=== PATIENT | female | born 1980 | race Caucasian/White ===

== ENCOUNTER 2023-07-31 07:45 | Outpatient (CLI) | payer OTHER, SELFPAY ==
--- NOTE | ~2023-07-31 | MM_ITS ---
EXAMINATION: MM screening jorge BI w carmen HISTORY: Baseline screening mammogram TECHNIQUE: Craniocaudal and mediolateral oblique 3-D tomosynthesis images were obtained and synthetic 2-D images were generated. CAD analysis was submitted and interpreted. COMPARISON: None, baseline BREAST PARENCHYMAL COMPOSITION: There are scattered areas of fibroglandular density. FINDINGS: RIGHT BREAST: An asymmetry is present in the anterior third of the slightly inner breast 4 cm from th e nipple on the craniocaudal view. LEFT BREAST: An asymmetry is present in the posterior third of the outer breast 10 cm from the nipple on the craniocaudal view. IMPRESSION: 1. Bilateral breast asymmetries 2. Additional mammographic views and possible breast ultrasound are recommended to evaluate the bilat eral asymmetries and establish a baseline given that this is the first mammographic examination. BI-RADS Category 0: Incomplete: Needs additional imaging evaluation. Reviewed, dictated and finalized at location A. WEB DEVELOPER IMPRESSION: 1. Bilateral breast asymmetries 2. Additional mammographic views and possible breast ultrasound are recommended to evaluate the bilateral asymmetries and establish a baseline given that this is the first mammographic examination. BI-RADS Category 0: Incomplete: Needs additional imaging evaluation.
== END 2023-07-31 07:46 | disposition home or self-care (01) ==
LOC: ANHIMG 07:48
PROVIDERS: PCP Physician Assistant Medical; Visit Provider Physician Assistant Medical
DX: Z12.31 Encounter for screening mammogram for malignant neoplasm of breast (principal); R92.8 Other abnormal and inconclusive findings on diagnostic imaging of breast
CPT/HCPCS: 77063; 77067

== ENCOUNTER 2023-08-26 12:03 | Outpatient (CLI) | payer OTHER, SELFPAY ==
--- NOTE | ~2023-08-26 | MMUS_ITS ---
EXAMINATION: MM diagnostic jorge BI w carmen, US breast BI limited HISTORY: Follow-up bilateral breast asymmetries TECHNIQUE: Additional 3-D tomosynthesis images of the breasts were performed and synthetic 2-D images were generated. CAD analysis was submitted and interpreted. High resolution limited bilateral breast ultrasound was performed. COMPARISON: 07/31/2023 BREAST PARENCHYMAL COMPOSITION: Not dense: There are scattered areas of fibroglandular density. FINDINGS: MAMMOGRAPHIC FINDINGS: There are no suspicious masses, calcifications or architectural distortion in either breast to sugges t malignancy. ULTRASOUND: Limited bilateral breast ultrasound: Normal heterogeneous echotexture without focal solid or cystic m ass in either breast. IMPRESSION: 1. No evidence for malignancy in either breast. 2. Routine yearly screening mammogram and regular clinical breast examination are recommended. BI-RADS Category 1: Negative Reviewed, dictated and finalized at location A. L JUDGE IMPRESSION: 1. No evidence for malignancy in either breast. 2. Routine yearly screening mammogram and regular clinical breast examination a re recommended. BI-RADS Category 1: Negative
== END 2023-08-26 12:04 | disposition home or self-care (01) ==
LOC: ANHIMG 12:07
PROVIDERS: PCP Physician Assistant Medical; Visit Provider Physician Assistant Medical
DX: R92.8 Other abnormal and inconclusive findings on diagnostic imaging of breast (principal)
CPT/HCPCS: 76642; 77062; 77066; G0279

== ENCOUNTER 2024-01-27 10:33 | Outpatient (CLI) | payer OTHER, SELFPAY ==
--- NOTE | ~2024-01-27 | MR_ITS ---
EXAMINATION: MR brain/brain stem wo/w con DATE: 01/27/2024 11:16 INDICATION: Dizziness and giddiness. TECHNIQUE: Magnetic resonance imaging (MRI) of the brain and brainstem was performed without and with 20 mL MultiHance intravenous contrast. COMPARISON: None. FINDINGS: There are a few foci of nonspecific increased T2-weighted signal intensity in the cerebral white matter, which is within normal limits for the patient's age. There is no intracranial hemorrhag e, acute infarction, or abnormal intracranial mass lesion. The ventricles are normal in size. There i s mild mucosal thickening in the paranasal sinuses. The orbits are normal. The mastoid air cells are normal. IMPRESSION: 1. Normal aging brain. Reviewed, dictated and finalized at location A. IMPRESSION: 1. Normal aging brain.
== END 2024-01-27 10:34 ==
LOC: MICIMG 10:33
PROVIDERS: PCP Physician Assistant Medical; Visit Provider Physician Assistant Medical
DX: R42 Dizziness and giddiness (principal)
CPT/HCPCS: 70553; A9577

== ENCOUNTER 2025-01-25 11:18 | Outpatient (CLI) | payer OTHER, SELFPAY ==
--- OUTSIDE RECORDS SUMMARY | 2025-01-25 11:26 | XMS_ITS | Data Portability ---
Author Organization [facility] Address [address] [place] [address] Care Team Providers Care Paint Specialist Name Role Phone RYDER SAURAV Primary Care Provider Assessment Encounter Date Assessment Date Assessment LastModified by Organization Details LastModified Time 11/17/2024 11/17/2024 The patient and I discussed the various causes of abnormal uterine bleeding, including polyps, fibroids, hyperplasia, atypia, anovulation, etc. We reviewed the typical evaluation with labs, pelvic US and possible endometrial biopsy. Briefly discussed the options available for treatment (depending on the results of evaluation) such as hormonal treatment (OCPs, progestins), Mirena, endometrial ablation, and surgery. We spent more than 30 minutes face to face. Not available 11/17/2024 10:48:44 12/07/2024 12/07/2024 Annual gynecological exam performed. Patient will come back in a year unless there are new symptoms. Not available 12/07/2024 09:40:30 Plan of Treatment Reminders Order Date Submit Date Provider Last Modified By Organization Details Last Modified Time Details Appointments Robotic TLH 2024 07:30A Jovita ALTMAN MD Not available Not available Not available SURG POST OP 2024 09:45A Jovita ALTMAN MD Not available Not available Not available Lab pap, IG + HR HPV - HPV regardles s but if HPV is positive need subtyping 16,18/45 12/07/ 025 [facility] (Lab), [address], [place], [address], 12/12/2024 13:00:42 dhea-sulf ate, serum 2024 025 [facility] (Lab), [address], [place], [address], 11/21/2024 19:04:30 hormone panel, serum or plasma 2024 025 [facility] (Lab), [address], [place], [address], 11/21/2024 19:04:30 progester one, serum 2024 025 [facility] (Lab), [address], [place], [address], 11/21/2024 19:04:29 prolactin , serum 2024 025 [facility] (Lab), [address], [place], [address], 11/21/2024 19:04:29 shbg (sex hormone-b inding globulin) , serum 2024 025 [facility] (Lab), [address], [place], [address], 11/21/2024 19:04:31 TSH, serum or plasma 2024 025 [facility] (Lab), [address] [place], [address], 11/21/2024 19:04:31 testoster one free/test osterone total, ratio, serum 2024 025 [facility] (Lab), [address] [place], [address], 11/21/2024 19:04:32 CBC w/ auto diff 2024 025 [facility], [address] [place], [address], 11/21/2024 19:04:28 Referral None recorded. Procedures None recorded. Surgeries robotic assisted hysterect josiah w/bilater al salpingo- oophorect josiah (SURG) 2024 025 [email or web address], [address], [place], [address], 01/16/2025 12:37:54 Imaging MAMMO, screening , digital, bilateral 2024 025 [email or web address] [facility], [address], [place], [address], 01/09/2025 11:50:42 US, pelvis 2024 025 [email or web address] [facility], [place], [address], 11/23/2024 15:13:10 US, transvagi nal 2024 025 [email or web address] [facility], [address], [place], [address], 11/23/2024 15:13:10 US, pelvis, complete 2024 025 [email or web address] [address], [place], [address], 11/28/2024 10:38:14 Medication Orders None recorded. Patient TargetsNo targets recorded. Patient InstructionsNo instructions recorded. Reason for Referral None Reported. Results Created Date Observation Date Name Description Value Unit Range Abnormal Flag Note LastModifiedBy Organization Detail LastModifiedTime 11/18/1911/17/2024 CBC W/DIF F WBC 4.7 10'3/ uL 3.5-10 .5 Not Available [facility] (Lab) [address], [place], [address], 11/21/2024 19:04:28 11/18/19 25 11/17/2024 CBC W/DIF F RBC 4.57 10'6/ uL (based on docume nted legal sex) 3.80-5 .20 Not Available [facility] (Lab) [address], [place], [address], 11/21/2024 19:04:28 11/18/19 25 11/17/2024 CBC W/DIF F HGB 12.5 g/dL (based on docume nted legal sex) 11.6-1 5.4 Not Available [facility] (Lab) [address], [place], [address], 11/21/2024 19:04:28 11/18/1911/17/2024 CBC W/DIF F HCT 41.0 % (based on docume nted legal sex) 34.0-4 5.0 Not Available [facility] (Lab) [address], [place], [address], 11/21/2024 19:04:28 11/18/19 25 11/17/2024 CBC W/DIF F MCV 89.7 fL 80.0-9 9.0 Not Available [facility] (Lab) [address], [place], [address], 11/21/2024 19:04:28 11/18/19 25 11/17/2024 CBC W/DIF F MCH 27.4 pg 27.0-3 4.0 Not Available [facility] (Lab) [address] [place], [address], 11/21/2024 19:04:28 11/18/1911/17/2024 CBC W/DIF F MCHC 30.5 g/dL 32.0-3 5.5 low Not Available [facility] (Lab) [address] [place], [address], 11/21/2024 19:04:28 11/18/19 25 11/17/2024 CBC W/DIF F RDW 18.5 % 11.0-1 5.0 high Not Available [facility] (Lab) [address], [place], [address], 11/21/2024 19:04:28 11/18/19 25 11/17/2024 CBC W/DIF F plt 195 10'3/ uL 150-40 0 Not Available [facility] (Lab) [address], [place], [address], 11/21/2024 19:04:28 11/18/19 25 11/17/2024 CBC W/DIF F MPV 13.6 fL 8.8-12 .1 high Not Available [facility] (Lab) [address], [place], [address], 11/21/2024 19:04:28 11/18/19 25 11/17/2024 CBC W/DIF F neutrophils 68.7 % 34.0-7 3.0 Not Available [facility] (Lab) [address], [place], [address], 11/21/2024 19:04:28 11/18/19 25 11/17/2024 CBC W/DIF F lymphocytes 23.1 % 15.0-5 0.0 Not Available [facility] (Lab) [address], [place], [address], 11/21/2024 19:04:28 11/18/19 25 11/17/2024 CBC W/DIF F monocytes 6.2 % 1.0-15 .0 Not Available [facility] (Lab) [address], [place], [address], 11/21/2024 19:04:28 11/18/19 25 11/17/2024 CBC W/DIF F eosinophils 0.9 % 0.0-8. 0 Not Available [facility] (Lab) [address] [place], [address], 11/21/2024 19:04:28 11/18/19 25 11/17/2024 CBC W/DIF F basophils 0.9 % 0.0-2. 0 Not Available [facility] (Lab) [address], [place], [address], 11/21/2024 19:04:28 11/18/1911/17/2024 CBC W/DIF F immature granulocytes 0.2 % no define d refere nce range Immat ure Granu locyt es (IG) repre sents autom ated enume ratio n of Metam yeloc ytes, Myelo cytes and Promy elocy keshawn when IG is < 5%. Blast s are not inclu ded in IG and repor kyle separ ately if prese nt. Not Available [facility] (Lab) [address], [place], [address], 11/21/2024 19:04:28 11/18/1911/17/2024 CBC W/DIF F absolute neutrophils 3.2 10'3/ uL 1.5-8. 0 Not Available [facility] (Lab) [address], [place], [address], 11/21/2024 19:04:28 11/18/19 25 11/17/2024 CBC W/DIF F absolute lymphocytes 1.1 10'3/ uL 1.0-4. 0 Not Available [facility] (Lab) [address], [place], [address], 11/21/2024 19:04:28 11/18/19 25 11/17/2024 CBC W/DIF F absolute monocytes 0.3 10'3/ uL 0.2-1. 0 Not Available [facility] (Lab) [address], [place], [address], 11/21/2024 19:04:28 11/18/19 25 11/17/2024 CBC W/DIF F absolute eosinophils 0.0 10'3/ uL 0.0-0. 6 Not Available [facility] (Lab) [address], [place], [address], 11/21/2024 19:04:28 11/18/19 25 11/17/2024 CBC W/DIF F absolute basophils 0.0 10'3/ uL 0.0-0. 3 Not Available [facility] (Lab) [address], [place], [address], 11/21/2024 19:04:28 11/18/19 25 11/17/2024 CBC W/DIF F absolute immature granulocytes 0.0 10'3/ uL 0.00-0 .10 Refer ence range s for nonbi nary/ inter sex or unspe cifie d gende r patie nts have not been estab lishe d. Pleas e refer to the follo wing table for range s estab lishe d for cisge nder patie nts and evalu ate in the clini je jeremías xt of the indiv idual patie nt: https ://sole blaire book. nm.or g/gen derx Not Available [facility] (Lab) [address], [place], [address], 11/21/2024 19:04:28 11/18/19 25 11/17/2024 PROGE STERO NE progesterone 1.15 NG/mL This assay was perfo rmed using [employer] ratio n reage nts and test kits. Value s obtai joan with other assay metho ds or kits canno t be used inter [facility] e[facility] . Femal e Proge stero ne Range s: Folli cular phase 0.06- 0.89 ng/mL Ovula tion phase 0.12- 12.00 ng/mL Lutea l phase 1.83- 23.90 ng/mL Postm enopa usal <0.05 -0.13 ng/mL Healt hy Pregn ant Women 1st Trime ster 11.0- 44.30 2nd Trime ster 25.40 -83.3 0 3rd Trime ster 58.70 -214. 00 Not Available [facility] (Lab) [address], [place], [address], 11/21/2024 19:04:29 11/18/19 25 11/17/2024 PROLA CTIN prolactin, total 14.40 NG/mL 4.79-2 3.30 This assay was perfo rmed using [employer] ratio n reage nts and test kits. Value s obtai joan with other assay metho ds or kits canno t be used inter [facility] . Not Available [facility] (Lab) [address] [place], [address], 11/21/2024 19:04:29 11/18/19 25 11/17/2024 DHEA SULFA TE DHEA-sulfate 164 ug/dL Femal e Range s Age(y ) Range (ug/d L) 10-15 34-28 0 15-20 65-36 8 20-25 148-4 07 25-35 99-34 0 35-45 61-33 7 45-55 35-25 6 55-65 19-20 5 65-75 9-246 > 75 12-15 4 Not Available [facility] (Lab) [address] [place], [address], 11/21/2024 19:04:30 11/18/19 25 11/17/2024 FSH, LH, ESTRA DIOL estradiol 295.0 pg/mL This assay was perfo rmed using [employer] ratio n reage nts and test kits. Value s obtai joan with other assay metho ds or kits canno t be used inter [facility] . Femal e Estra diol Range s: Folli cular phase 12.4- 233 pg/mL Ovula tion phase 41.0- 398 pg/mL Lutea l phase 22.3- 341 pg/mL Postm enopa usal <5-13 8 pg/mL Healt hy Pregn ant Women 1st Trime ster 154-3 243 pg/mL 2nd Trime ster 1561- 39281 pg/mL 3rd Trime ster 8525- >3000 0 pg/mL Not Available [facility] (Lab) [address] [place], [address], 11/21/2024 19:04:30 11/18/19 25 11/17/2024 FSH, LH, ESTRA DIOL FSH 4.3 mIU/m L This assay was perfo rmed using [employer] ratio n reage nts and test kits. Value s obtai joan with other assay metho ds or kits canno t be used inter [facility] . Femal es Folli cular : 3.5-1 2.5 mIU/m L Ovula tion: 4.7-2 1.5 mIU/m L Lutea l: 1.7-7 .7 mIU/m L Postm enopa use: 25.8- 134.8 mIU/m L Not Available [facility] (Lab) [address], [place], [address], 11/21/2024 19:04:30 11/18/19 25 11/17/2024 FSH, LH, ESTRA DIOL LH 12.0 mIU/m L This assay was perfo rmed using [employer] ratio n reage nts and test kits. Value s obtai joan with other assay metho ds or kits canno t be used inter [facility] . Femal es Mid-F ollic ular: 2.4-1 2.6 mIU/m L Mid-C ycle: 14.0- 95.6 mIU/m L Mid-L uteal : 1.0-1 1.4 mIU/m L Postm enopa use: 7.7-5 8.5 mIU/m L Not Available [facility] (Lab) [address], [place], [address], 11/21/2024 19:04:30 11/18/1911/17/2024 TSH, REFLE X FREE T4 TSH 0.32 uIU/m L 0.30-5 .33 Not Available [facility] (Lab) [address] [place], [address], 11/21/2024 19:04:31 11/18/19 25 11/17/2024 HUMAN SEX HORMO NE LAYLA NG GLOBU ANATOLY sex hormone binding globulin 73.9 nmole s/L 18.2-1 35.5 Not Available [facility] (Lab) [address], [place], [address], 11/21/2024 19:04:31 11/18/19 25 11/17/2024 TESTO STERO NE, FREE( DIALY SIS) AND TOTAL (LC/M S/MS) testosterone , total 20 NG/dL 2-45 For addit ional [facility] e refer to http: //[facility] arnaldo fernandez.que stdia gnost ics.c om/fa q/ Total Testo stero neLCM SMSFA Q165 (This link is being provi ded for [facility] luis nal/ educa kary l purpo ses only. ) This test was devel oped and its anna tical perfo rmanc e baltazar cteri stics have been deter mined by [employer] [place], [place]. It has not been clear ed or appro wiliam by the U.S. Food and Drug Admin istra tion. This assay has been valid ated pursu ant to the [facility] regul ation s and is used for clini je purpo ses. Not Available [facility] (Lab) [address], [place], [address], 11/21/2024 19:04:32 11/18/19 25 11/17/2024 TESTO STERO NE, FREE( DIALY SIS) AND TOTAL (LC/M S/MS) testosterone , free 1.7 pg/mL 0.1-6. 4 This test was devel oped and its anna tical perfo rmanc e baltazar cteri stics have been deter mined by [employer] [facility] [facility] [place], [place]. It has not been clear ed or appro wiliam by the U.S. Food and Drug Admin istra tion. This assay has been valid ated pursu ant to the CLIA regul ation s and is used for clini je purpo ses. Perfo rming Organ izati on [facility] n: Site ID: AMD Name: [employer] [facility] [employer] leanne Addre ss: [id number] [facility] [address] [place], [place] Direc tor: Dacia Cotton MD PhD Not Available [facility] (Lab) [address], [place], [address], 11/21/2024 19:04:32 12/08/19 25 12/07/2024 IMAGE GUIDE D PAP AND HPV REGAR DLESS image guided Pap, HPV regardless of Pap result SEE RESULT S BELOW CASE REPOR T: Cytol ogy Gynec ologi je Repor t Case: [id number] Autho manav g Provi xiomara: Dermo dy, Camryn , ANP, RESIDENCY COORDINATOR Colle cted: 12/07 0905 Order ing Locat ion: [place] Patho log[facility] Recei wiliam: 12/08 0726 First Jamel n: Sammie Lassiter, CT Speci men: Jamel carter Pap - Image d, Cervi x STATE MENT OF ADEQU ACY: Satis facto ry for evalu ation Trans forma tion zone compo nent prese nt ----- ----- ----- ----- ----- ----- ----- ----- ----- ----- ----- ----- ----- ----- ----- ----- ----- ---- FINAL DIAGN OSIS: Negat stephen for Intra epith elial Narda fernandez or Td reeder ([facility]) . Elect brijesh garcia by Sammie Lassiter, CT on 2024 at 1156 CDT ----- ----- ----- ----- ----- ----- ----- ----- ----- ----- ----- ----- ----- ----- ----- ----- ----- ---- HPV RESUL TS: HPV mRNA E6/E7 : No HPV mRNA Detec kyle NOTE: This high risk HPV mRNA assay detec ts fourt een high- risk HPV types (16, 18, 31, 33, 35, 39, 45, 51, 52, 56, 58, 59, 66, 68) witho ut diffe renti ation . COMME NT: This speci men was revie wed by a Cytot echno logis t and/o r Patho logis t (as indic ated in this repor t) after evalu ation using the Thinp rep Imagi ng Syste m. CLINI JE INFOR MATIO N: Menst rual Statu s: LMP (if appli cable ): Clini je Histo ry/Pr eviou s Pap: Type of Neopl sravani (if appli cable ): Signi fican t Clini je Findi ngs: Other Histo ry: Hormo caprice (if appli cable ): PAP EDUCA KARY L NOTE: The Pap Test is a scree raul test with an inher ent false negat stephen rate. Liqui d-bas ed sampl ing may decre ase, but will not elimi katy, false negat stephen resul ts. A negat stephen resul t does not precl ude the prese nce and/o r devel opmen t of disea se, since the prese nce of abnor mal cells in the sampl e depen ds on the locat ion of the lesio n and sampl ing techn ique. [place] nued regul ar scree raul is the best metho d of cance r preve ntion . If repor kyle cytol ogic findi ng do not corre late with physi je and/o r histo rical findi ngs, furth er inves tigat ion is recom airam d, as clini tari whitfield nted. Not Available [facility] (Lab) [address], [place], [address], 12/12/2024 13:00:42 11/19/19 USkatlin s No observ ation record ed. [email or web address] Not Available 2024 16:38:26 11/24/19 25 11/23/2024 US, pelvi s No observ ation record ed. [email or web address] [place] [address], [place], [address], 11/23/2024 13:26:45 11/24/19 25 11/23/2024 US, trans vagin al No observ ation record ed. [email or web address] [place] [address], [place], [address], 11/23/2024 13:26:56 11/24/19 25 11/23/2024 US, katlin s No observ ation record ed. [email or web address] [address], [place], [address], 12/07/2024 11:14:40 Result Notes None recorded. Procedures Surgical History Date Name Laterality Status Provider Name and Address Organization Details Recorded Time 11/08/19 25 Date of Last Pap Smear completed [facility] 12/07/2024 09:43:35 07/31/19 24 Date of Last Mammogram completed [facility] 11/17/2024 09:43:30 04/03/20 10 Caesarean Section completed [facility] 11/17/2024 09:43:[address] [facility] 11/17/2024 09:43:[address] [facility] 11/17/2024 09:43:31 Orthopedic Surgery completed Alexandria Ulrich [facility] 12/09/2024 12:15:02 Imaging Results None recorded. Procedure Notes None recorded. Medical Equipment None Reported. Allergies No known drug allergies Medications Name Sig Start Date Stop Date Status Note LastModified by Organization Details LastModified Time levothyroxine 150 mcg tablet TAKE 1 TABLET BY MOUTH DAILY active Not Available Not Available No t Available Vitals Date Recorded Body height Body mass index (BMI) Body weight Systolic blood pressure Diastolic blood pressure Provider Name and Address Organization Details Last Updated DateTime 11/17/2024 167.64 cm 27.2 kg/m2 55343.39 g 133 mm[Hg] 81 mm[Hg] [facility] 09:57:56 Date Recorded Body height Body mass index (BMI) Body weight Systolic blood pressure Diastolic blood pressure Provider Name and Address Organization Details Last Updated DateTime 12/07/2024 167.64 cm 26.8 kg/m2 58881.05 g 142 mm[Hg] 85 mm[Hg] Marcelina Chan [facility] 5 09:16:57 Date Recorded Body height Body mass index (BMI) Body weight Systolic blood pressure Diastolic blood pressure Provider Name and Address Organization Details Last Updated DateTime 12/09/2024 167.64 cm 26.1 kg/m2 65947.96 g 136 mm[Hg] 93 mm[Hg] [facility] 12:13:27 Date Recorded Body height Body mass index (BMI) Body weight Systolic blood pressure Diastolic blood pressure Provider Name and Address Organization Details Last Updated DateTime 01/24/2025 167.64 cm 27.3 kg/m2 94420.11 g 139 mm[Hg] 84 mm[Hg] [facility] 10:03:34 Social History Question Answer Notes LastModified by Organizat ion Details LastModified Time Tobacco Smoking Status Never Smoker Marcelina Chan [facility] 11/17/2024 09:46:21 Do You Have An Advance Directive? No [email or web address] Information n ot available 11/17/2024 Are You Blind Or Do You Have Difficulty Seeing? No [email or web address] Information n ot available 11/17/2024 What Is Your Level Of Caffeine Consumption? Moderate [email or web address] Information not available 11/17/2024 How Much Tobacco Do You Chew? None [email or web address] Information not available 11/17/2024 In The 14 Days Before Symptom Onset, Have You Had Close Contact With A Laboratory-confirm ed COVID-19 While That Case Was Ill? No [email or web address] Information n ot available 11/17/2024 In The 14 Days Before Symptom Onset, Have You Had Close Contact With A Person Who Is Under Investigation For COVID-19 While That Person Was Ill? No [email or web address] Information not available 11/17/2024 Have You Been To An Area Known To Be High Risk For COVID-19? No [email or web address] Information not available 11/17/2024 Are You Deaf Or Do You Have Serious Difficulty Hearing? No [email or web address] Information not available 11/17/2024 What Type Of Diet Are You Following? REGULAR Information n ot available 11/17/2024 What Is The Highest Grade Or Level Of School You Have Completed Or The Highest Degree You Have Received? AC51848-2 [email or web address] Information not available 11/17/2024 Are There Any Guns Present In Your Home? No [email or web address] Information not available 11/17/2024 Do You Use Protection During Sex? Always [email or web address] Information not available 11/17/2024 Do You Use Your Seat Belt Or Car Seat Routinely? Yes [email or web address] Information not available 11/17/2024 Do You Have Smoke And Carbon Monoxide Detectors In Your Home? Yes [email or web address] Information not available 11/17/2024 How Much Tobacco Do You Smoke? No [email or web address] Information not available 11/17/2024 Do You Use Sunscreen Routinely? No [email or web address] Information not available 11/17/2024 Have You Used IV Drugs? No Information not available 11/17/2024 Do You Have Difficulty Walking Or Climbing Stairs? No Information not available 11/17/2024 Sex: Unknown Functional Status Question Answer Note LastModified by Organizat ion Details LastModified Time Do you use any illicit or recreational drugs? No [email or web address] Information not available 11/17/2024 What is your level of alcohol consumption? None [email or web address] Information not available 11/17/2024 Are you currently employed? No [email or web address] Information not available 11/17/2024 Are you able to walk? [email or web address] Information not available 11/17/2024 Are you able to care for yourself? Yes [email or web address] Information not available 11/17/2024 What is your occupation? Stay at home mom [email or web address] Information not available 11/17/2024 Do you have difficulty dressing or bathing? No [email or web address] Information not available 11/17/2024 What is your exercise level? Moderate [email or web address] Information not available 11/17/2024 Mental Status Question Answer Note LastModified by Organization D etails LastModified Time Do you feel stressed (tense, restless, nervous, or anxious, or unable to sleep at night)? [id number] [email or web address] Information not available 11/17/2024 Family History Relationship Description Onset Age of this Age Resolved Age Notes LastModified by Organization Details LastModified Time Father [email or web address] disorder Not available 2024 09:43:30 Father Diabetes mellitus [email or web address] Not available 2024 09:43:30 Paternal Grandmother Diabetes mellitus [email or web address] Not available 2024 09:43:30 Mother Heart disease [email or web address] Not available 2024 09:43:30 Mother Diabetes mellitus [email or web address] Not available 2024 09:43:30 Maternal Aunt Malignant neoplasm of uterus [email or web address] Not available 2024 10:09:49 Maternal Grandmother Diabetes mellitus Not available 2024 09:43:30 Sister Disorder of thyroid gland [email or web address] Not available 2024 09:43:30 Maternal Grandfather Diabetes mellitus [email or web address] Not available 2024 09:43:30 Paternal Grandfather Diabetes mellitus [email or web address] Not available 2024 09:43:30 Unspecified Relation Malignant neoplasm of uterus 39 Matern al cousin [email or web address] Not available 01/24/2025 09:58:41 Unspecified Relation Malignant neoplasm of uterus [email or web address] Not available 2024 08:21:51 Medical History Condition Response Allergies (Food, seasonal, environmental ) N Other Y Drug/Latex Allergies/Reactions N Blood Transfusion N Breast Cancer N Dermatologic Disorders N Lung Disease N Defects or Inherited Disease N Breast Problem N Gestational Diabetes N Hematologic disorders N Anesthesia Complications N History of STI N Deep Vein Thrombosis N Polycystic ovary syndrome N Anxiety Disorder N Autoimmune disease N Arthritis N Polyps N Infertility N Acid Reflux (GERD) N History of abnormal pap N Cancer N Varicosities N Stroke N Neurologic/Epilepsy N Endometriosis N High Cholesterol N Fibromyalgia N Headaches N Kidney Disease N Heart Problems N Thyroid Problems Y Kidney or Bladder Problems N GI Problems N Eating Disorder N Anemia N Art (IVF or FET) N Psychiatric Illness N Ovarian Cancer N Diabetes N Pulmonary (TB, Asthma) N Hepatitis/Liver Disease N No Past Medical History N Eczema N Urinary Tract Infection N Abuse/Domestic Violence N Asthma N Trauma/Violence N Depression/ depression N Heart Disease N Pre-Eclampsia N Hypertension N Osteoporosis N Thrombophilias N Gynecological History Statement/Question Response Abnormal Pap N Flow Heavy Date of Last Mammogram 07/31/2023 Date of LMP 01/06/2025 N On BCP's at Conception? N STIs/STDs N Was last menstrual period normal N HPV Vaccine N Duration of Flow (days) 9 Current Control Method Condoms Age at First Child 29 Are cycles usually normal N Frequency of Cycle (Q days) 18 Sexually Active? Y Menses Monthly Y Age of first menstrual cycle 13 Date of Last Pap Smear 11/07/2024 Sexual Problems? Yes LMP Definite Desired Control Method Hysterectom y N Obstetrics History GPAL:G 3 P 3 0 0 2 Type Value Multiple Births 1 Full Term 3 Living 2 Total 3 Past Encounters Encounter ID Performer Location Encounter Start Date Encounter Closed Date Diagnosis/Indication Diagnosis SNOMED-CT Code Diagnosis ICD10 Code Diagnosis Note [id number] Solis Altman MD [place] [address] [address] 11/17/2024 09:40:43 11/17/2024 11:09:32 Abnormal uterine bleeding [id number] 9100 N93.9 Hx of endometrio sis and fibroid uterus.Rec ommended updated pelvic ultrasound and labs.Patie nt to follow-up with to review labs/imagi ng and for surgical consult. [id number] Solis Altman MD [place] [address] [address] 11/23/2024 10:11:10 11/23/2024 11:27:58 Abnormal uterine bleeding [id number] 9100 N93.9 D25.9 [id number] Solis Altman MD [place] [address] [address] 12/07/2024 08:59:44 12/07/2024 09:42:52 Well woman health examination [id number] Z01.419 Annual gynecologi je exam performed. Patient will come back in a year unless there are new symptoms. Suggest Calcium with Vitamin D if not eating in diet. Patient advised to get annual flu shot. Recommend yearly physicals and perform monthly breast exams. Genetic testing is available for patients with family history of cancer. Engage in safe sexual practices, use condoms. Encouraged to have daily exercise. Avoid tobacco and illicit drugs, moderation of alcohol. If BMI greater than 25 dietary consult advised. If you have any questions please call or email. mammogram- order given, pt to schedule colon cancer screening - n/a DEXA scan- n/a Pap smear- pap w/ HPV collected laboratory evaluation - PCP STI testing - declined Screening mammography 24 [id number] Z12.31 Uterine leiomyoma 387389 05 D25.9 Reviewed ultrasound results from 11/23/34 for AUB and pelvic pain with patient - two fibroids noted on ultrasound and left hemorrhagi c cyst. Discussed possible treatment options. Patient verbalizes understand ing.Sapphire cruz has ultrasound f/u scheduled with MD on 12/09 for surgical consult and to further discuss results. [id number] Solis Altman MD [place] [address] [address] 12/09/2024 11:24:50 12/09/2024 12:40:50 Endometriosis (clinical) [id number] N80.9 Family his tory of malignant neoplasm of uterus [id number] Z80.49 Pain in pelvis 53085657 R10.2 This patient is a 44year-old female presents for heavy vaginal bleeding. She has longstandi ng very heavy bleeding. Her menses are regular. However, they require double protection . Patient has accidents, getting blood on her bedding and clothing. Is affected work. She changes a pad or tampon every hour. She leaks blood around the pad and tampon. This bleeding has a profound impact on her quality of life and her activities of daily living. myoma. We discussed fibroids. Discussed the etiology, natural history, treatment of fibroids. We reviewed ultrasound results together. Family history of malignancy . She has close relatives that if experience d gynecologi c malignanci es. Pelvic pain. The patient has history of endometrio sis. She has longstandi ng history of pelvic pain and endometrio sis. She has had multiple ( x3) surgeries for endometrio sis. She would like to proceed with definitive surgical treatment for the multiple above conditions . We spent over 30 minutes discussing her case and taking care of her. We spent more than 30 minutes on her care in total. The patient understand s the procedure. The procedure was described to the patient in great detail. the patient also understand s the risks. The risks were also explained in detail. She understand s that injuries May occur during surgery. She understand s these injuries can result in hospitaliz ation, more surgery, and severe illness. She understand s there is risk of hemorrhage and infection. Menorrhagia [id number] N9 2.0 [id number] Solis Altman MD [place] [address] [address] 01/24/2025 09:58:32 01/24/2025 10:40:52 Menorrhagia 795224214 N92.0 Cyst of bi lateral ovaries [id number] 8745059 N83.201 N83.202 This patient is a 44-year-ol d female with severe menorrhagi a. We have agreed to perform robotic assisted total hysterecto my bilateral salpingo-o ophorectom y. She understand s the risks, benefits, and alternativ es. She has completed the informed consent process and is ready to proceed. Health Concerns Section Related Observation LastModified by Organization Detai ls LastModified Time None Recorded Concern Status LastModified by Organization Details LastModified Time None Recorded Advance Directives Directive N: Payers Insurance Date Sequence Insurance Name Policy Number Policy Burris Covered Member ID Burris Member ID Guarantor Name 01/24/2025 1 [facility] [id number] Dev Zaidi [id number] Nova Zaidi Notes Date Note Type Note Provider Name and Address Organization Details Recorded Time 11/17/2024 text/html 44 y/o female presents with c/o for heavy, irregular periods and pelvic pain.Patient states that she was evaluated at [facility] last December 2023 for this concern, and two fibroids were noted on pelvic ultrasound (largest being 4 cm).Patient reports history of endometriosis. Reports having laparoscopy and ablation performed before having children.Patient reports that the past year, her periods have been more frequent, q18-20 days with heavy bleeding and clotting. Patient also notes intermenstrual spotting.Patient reports family history of uterine cancer - maternal aunt and cousin.Patient interested in surgical options for treatment.Hx of hypothyroidism, managed with levothyroxine. Neg urinary sx'sNeg GI sx'sNeg N/V/F/C/DNeg Vag d/c, odor, irritation, itching [facility] NP [address], [place], [address], [place] [facility] 11/17/2024 10:49:40 12/07/2024 text/html Annual GYNReport ed bypatient.Menstrual cycle:Irregular cycle intervals;Bleeding between periods Urinary symptoms:No hematuria; No incontinence Vulva:No genital lesion Vagina:Normal vaginal discharge Breast:No breast pain; No breast lump; No nipple discharge Current Contraception:Condom s Sexual complaints:No sexual complaints; No pain during intercourse; Normal libido Menopausal Symptoms:No menopausal symptoms; Normal vaginal lubrication Psychological symptoms:No depression; No anxiety; No PMDD Preventive measures:Encourage self breast examination; Encourage regular exercise; Encourage no tobacco use; Encourage regular mammograms starting age 40 Patient presents for annual well woman exam. Marcelina enriquez, [facility] 12/07/2024 09:47:17 12/09/2024 text/html This patient is a 44year-old female presents for heavy vaginal bleeding. She has longstanding very heavy bleeding. Her menses are regular. However, they require double protection. Patient has accidents, getting blood on her bedding and clothing. Is affected work. She changes a pad or tampon every hour. She leaks blood around the pad and tampon. This bleeding has a profound impact on her quality of life and her activities of daily living. myoma. We discussed fibroids. Discussed the etiology, natural history, treatment of fibroids. We reviewed ultrasound results together. Family history of malignancy. She has close relatives that if experienced gynecologic malignancies. Pelvic pain. The patient has history of endometriosis. She has longstanding history of pelvic pain and endometriosis. She has had multiple ( x3) surgeries for endometriosis. She would like to proceed with definitive surgical treatment for the multiple above conditions. We spent over 30 minutes discussing her case and taking care of her. We spent more than 30 minutes on her care in total. The patient understands the procedure. The procedure was described to the patient in great detail. the patient also understands the risks. The risks were also explained in detail. She understands that injuries May occur during surgery. She understands these injuries can result in hospitalization, more surgery, and severe illness. She understands there is risk of hemorrhage and infection. Solis Altman MD [address], [place], [address], [facility] 12/09/2024 12:39:14 01/24/2025 text/html This patient is a 44-year-old female with severe menorrhagia. We have agreed to perform robotic assisted total hysterectomy bilateral salpingo-oophorectom y. She understands the risks, benefits, and alternatives. She has completed the informed consent process and is ready to proceed. The patient understands the procedure. The procedure was described to the patient in great detail. the patient also understands the risks. The risks were also explained in detail. She understands that injuries May occur during surgery. She understands these injuries can result in hospitalization, more surgery, and severe illness. She understands there is risk of hemorrhage and infection. Solis Altman MD [address], [place], [address], [facility] 01/24/2025 10:37:04 OBGyn Episode Ob Episode Information Episode Created Date Number of Fetuses Patient Bloodtype Patient rh Status Prepregnancy Weight lbs Domestic Partner Domestic Partner Phone Father Name Dehydrogenation Converter Helper Status 11/18/19 25 2 CLOSED Fetus Data First Name Last Name Admitted to NICU Weight (g) Sex Living Outcome Pediatric Complications Fetus ID Race Codes Race Delivery Type 2494.75 6 F Full Term [id number] Primary 2891.64 9 F Full Term [id number] Primary Malvin Calculation Initial Malvin Date Initial Exam Date Initial Exam Provider Initial Ultrasound Date Last Menstrual Period Date Ultra Sound Weeks Gestation 0 Eighteen To Twenty Week Malvin Update Ultra Sound Date Fundal Height At Umbil Quickening Date Ultra Sound Latest Weeks Gestation Final Malvin Confirmed By Final Malvin Confirmed Date Final Malvin Date Ultra Sound Latest Days Gestation 0 0 Menstrual History Last Menstrual Date Menses Monthly On Bcp Conception Prior Menses Frequency Hcg Plus Date Menarche Onset Age Delivery Information Delivery Date Delivery Type Labor Anesthesia Weeks Gestation Incision Type Labor Labor Length Hrs Delivered By Post Complications Tubal Sterilization Discharge Date Comments 0 37 Discharge Information Feeding Method Contraceptive Method Maternal HG B and HCT Levels Ob Episode Information Episode Created Date Number of Fetuses Patient Bloodtype Patient rh Status Prepregnancy Weight lbs Domestic Partner Domestic Partner Phone Father Name Dehydrogenation Converter Helper Status 11/18/19 25 1 CLOSED Fetus Data First Name Last Name Admitted to NICU Weight (g) Sex Living Outcome Pediatric Complications Fetus ID Race Codes Race Delivery Type 3997.05 2704 F Full Term [id number] Vaginal Delivery Malvin Calculation Initial Malvin Date Initial Exam Date Initial Exam Provider Initial Ultrasound Date Last Menstrual Period Date Ultra Sound Weeks Gestation 0 Eighteen To Twenty Week Malvin Update Ultra Sound Date Fundal Height At Umbil Quickening Date Ultra Sound Latest Weeks Gestation Final Malvin Confirmed By Final Malvin Confirmed Date Final Malvin Date Ultra Sound Latest Days Gestation 0 0 Menstrual History Last Menstrual Date Menses Monthly On Bcp Conception Prior Menses Frequency Hcg Plus Date Menarche Onset Age Delivery Information Delivery Date Delivery Type Labor Anesthesia Weeks Gestation Incision Type Labor Labor Length Hrs Delivered By Post Complications Tubal Sterilization Discharge Date Comments 9 40 Passed a t 2 days old Discharge Information Feeding Method Contraceptive Method Maternal HG B and HCT Levels
--- OUTSIDE RECORDS SUMMARY | 2025-01-25 11:26 | XMS_ITS | Clinical Summary ---
Author Organization [facility] Address [address] [place] [address] Care Team Providers Care Quality Supervisor Name Role Phone Francesca Palomares PA-C Primary Care Provider [phone] Allergies No known active allergies Medications multi vitamin/mineral s tablet Take 1 tablet by mouth daily. Active clobetasol 0.05 % creamIndication s:Psoriasis Apply topically 2 (two) times daily as needed. 60 g 1 0 Active busPIRone 5 MG tabletIndicatio ns:Anxiety Take 1 tablet (5 mg total) by mouth nightly. 90 tablet 0 Active LEVOTHYROXINE 150 MCG tabletIndicatio ns:Hypothyroidi sm, adult TAKE 1 TABLET BY MOUTH EVERY DAY IN THE MORNING 30 tablet 1 Active Active Problems Problem Noted Date Diagnosed Date Vertigo 02/16/2019 Irregular periods 02/16/2019 Other fatigue 10/21/2018 Hypokalemia 10/21/2018 Anxiety 10/21/2018 Acute pharyngitis, unspecified etiology 10/22/19 19 Nostril infection 10/21/2018 Hypothyroidism, adult 05/17/2018 Mild intermittent asthma (HHS/HCC) 05/17/2018 Overview (10/21/2018): Transitioned From: Asthma Environmental allergies 05/17/2018 Overview (11/02/2018): Last Assessment & Plan: I had extensive discussion with the patient regards to her symptoms. I indicated a history review of system physical examination are very consistent with uncontrolled allergies. I believe the allergies are also causing eustachian tube dysfunction. Counseled her to start Zyrtec 10 mg in the evenings as well as Flonase 1 spray each nostril b.i.d.. Counseled her to drink plenty of fluids and if symptoms not get better or worsen follow up with primary care physician Eustachian tube disorder, bilateral 01/20/2018 Overview (11/02/2018): Last Assessment & Plan: Most likely secondary to uncontrolled allergies See assessment and plan Vasovagal episode 01/20/2018 Overview (11/02/2018): Last Assessment & Plan: We had extensive discussion about her symptoms. I indicated to her that on physical examination she is neurologically intact and the history mostly points to a vasovagal near-syncope. At this point her vitals are within normal limits and there is no she has further concerns as this is a 1 time event. I counseled her to be very vigilant on her activities, not to overdo things, and most importantly since this is happening in the summer and I counseled her that her fluid intake should be increased if she is going to he engaging in vigorous physical activity like moving. If symptoms return then go to the emergency department immediately and do not wait. Hav (hallux abducto valgus), left 08/12/2016 Overview (11/02/2018): Overview: 08/12/2016 Left gastroc tendon release, 1st tmt arthrodesis, hallux osteotomy, dowel graft Resolved Problems Problem Noted Date Diagnosed Date Resolved Date Wears glasses 05/17/2018 04/06/2020 Immunizations Immunization Administration Dates Next Due Influenza Adult (Generic) 04/01/2019 Family History Medical History Relation Comments Diabetes Father Hyperlipidemia Father Hypertension Father Prostate Cancer Father Diabetes Mother None Sister 1 None Sister 2 None Sister 3 Relation Status Comments Father Alive Maternal Grandfather Maternal Grandmother Mother Alive Paternal Grandfather Paternal Grandmother Sister 1 Alive Sister 2 Alive Sister 3 Alive Social History Tobacco Use Types Packs/Day Years Used Date Smoking Tobacco: Former Cigarettes 1 8 1 995 - 2002 Smokeless Tobacco: Never Tobacco Cessation:Counseling Given: No Alcohol Use Standard Drinks/Week Comments Yes 0 (1 standard drink = 0.6 oz pure alcohol) 1 drink approximately every other week AUDIT-C Answer Date Recorded Frequency of Alcohol Consumption Monthly or less 04/04/2019 Average Number of Drinks Not on file 019 Frequency of Binge Drinking Not on file 03/2019 PHQ-2 Answer Date Recorded PHQ-2 Score 0 07/05/2019 Education Answer Date Recorded What is the highest level of school you have completed or the highest degree you have received? Some college, no degree 10/21/2018 Comments No Sex and Gender Information Value Date Recorded Sex Assigned at Not on file Legal Sex Female 3:50 PM CDT Gender Identity Not on file Sexual Orientation Not on file Occupation Industry Job Start Date Job End Date Not on file Not on file Not on file Not on file Last Filed Vital Signs Vital Sign Reading Time Taken Comments Blood Pressure 122/78 08/01/2019 9:38 AM DRIVABILITY TECHNICIAN Pulse 72 08/01/2019 9:38 AM DRIVABILITY TECHNICIAN Temperature 36.8 C (98.3 F) 08/01/2019 9:38 AM DRIVABILITY TECHNICIAN Respiratory Rate 18 08/01/2019 9:38 AM DRIVABILITY TECHNICIAN Oxygen Saturation 98% 08/01/2019 9:38 AM DRIVABILITY TECHNICIAN Inhaled Oxygen Concentration - - Weight 102.3 kg (225 lb 9.6 oz) 08/01/2019 9:38 AM DRIVABILITY TECHNICIAN Height 167.6 cm (5' 6) 08/01/2019 9:38 AM DRIVABILITY TECHNICIAN Body Mass Index 36.41 08/01/2019 9:38 AM DRIVABILITY TECHNICIAN Plan of Treatment Health Maintenance Due Date Last Done Comments Cervical Cancer Screening Pa p Smear (Age 30 to 64) Every 3 Years 1980 Annual Physical 1983 Hepatitis C 1998 DTaP, Tdap and Td Vaccines ( 1 - Tdap) 1999 Hepatitis B Vaccines (1 of 3 - 19+ 3-dose series) 1999 Pneumococcal Vaccine: Pediat rics (0 to 5 Years) and At-Risk Patients (6 to 49 Years) (1 of 2 - PCV) 1999 Cervical Cancer Screening Pa p with HPV Testing (Age 30 to 64) Every 5 Years 2010 Cervical Cancer Screening with HPV 2010 Mammogram Screening 2020 COVID-19 Vaccine ( - 2023-2 5 season) 2024 HPV Vaccines Aged Out No longer eligi ble based on patient's age to complete this topic Meningococcal B Vaccine Aged Out No l onger eligible based on patient's age to complete this topic Meningococcal Vaccine Aged Out No mariann svetlana eligible based on patient's age to complete this topic RSV Immunizations Under 20 Months Aged Out No longer eligible based on patient's age to complete this topic Insurance [facility] [id number] Care Teams Quality Supervisor Relationship Specialty Start Date End Date Francesca Palomares PA-C [address] [place] [address] [address] [place] [address] PCP - General PHYSICIAN ROOF TILE LAYER 01/12/24
--- OUTSIDE RECORDS SUMMARY | 2025-01-25 11:26 | XMS_ITS | Continuity of Care Document ---
Author Organization [facility] Address [address] [place] [address] Care Team Providers Care Work Ticket Distributor Name Role Phone RYDER SAURAV Primary Care Provider Assessment No assessment recorded. Plan of Treatment Reminders Order Date Submit Date Provider Last Modified By Organization Details Last Modified Time Details Appointments Robotic TLH 2024 07:30A Jovita BRYANT MD Not available Not available Not available SURG POST OP 2024 09:45A Jovita BRYANT MD Not available Not available Not available Lab None recorded . Referral None recorded . Procedures None recorded . Surgeries None recorded . Imaging None recorded . Medication Orders None recorded . Patient TargetsNo targets recorded. Patient InstructionsNo instructions recorded. Reason for Referral None Reported. Procedures Surgical History Date Name Laterality Status Provider Name and Address Organization Details Recorded Time 11/08/19 25 Date of Last Pap Smear completed [facility] 12/07/2024 09:43:35 07/31/19 24 Date of Last Mammogram completed [facility] 11/17/2024 09:43:30 04/03/20 10 Caesarean Section completed [facility] 11/17/2024 09:43:31 Tonsillectomy completed [facility] 11/17/2024 09:43:31 Laparoscopy completed [facility] 11/17/2024 09:43:31 [facility] 12/09/2024 12:15:02 Imaging Results None recorded. [...] Updated DateTime 01/24/2025 167.64 cm 27.3 kg/m2 99839.11 g 139 mm[Hg] 84 mm[Hg] [facility] 10:03:34 Social History Question Answer Notes LastModified by Organizat ion Details LastModified Time Tobacco Smoking Status Never Smoker [facility] 11/17/2024 09:46:21 Do You Have An Advance Directive? No [email or web address] Information n ot available 11/17/2024 Are You Blind Or Do You Have Difficulty Seeing? No [email or web address] Information n ot available 11/17/2024 What Is Your Level Of Caffeine Consumption? Moderate Information not available 11/17/2024 How Much Tobacco Do You Chew? None [email or web address] Information not available 11/17/2024 In The 14 Days Before Symptom Onset, Have You Had Close Contact With A Laboratory-confirm ed COVID-19 While That Case Was Ill? No [email or web address] Information n ot available 11/17/2024 In The 14 Days Before Symptom Onset, Have You Had Close Contact With A Person Who Is Under Investigation For COVID-19 While That Person Was Ill? No Information not available 11/17/2024 Have You Been To An Area Known To Be High Risk For COVID-19? No Information not available 11/17/2024 Are You Deaf Or Do You Have Serious Difficulty Hearing? No [email or web address] Information not available 11/17/2024 What Type Of Diet Are You Following? REGULAR [email or web address] Information n ot available 11/17/2024 What Is The Highest Grade Or Level Of School You Have Completed Or The Highest Degree You Have Received? GN24717-7 [email or web address] Information not available 11/17/2024 Are There Any Guns Present In Your Home? No [email or web address] Information not available 11/17/2024 Do You Use Protection During Sex? Always [email or web address] Information not available 11/17/2024 Do You Use Your Seat Belt Or Car Seat Routinely? Yes [email or web address] Information not available 11/17/2024 Do You Have Smoke And Carbon Monoxide Detectors In Your Home? Yes [email or web address] Information not available 11/17/2024 How Much Tobacco Do You Smoke? No [email or web address] Information not available 11/17/2024 Do You Use Sunscreen Routinely? No [email or web address] Information not available 11/17/2024 Have You Used IV Drugs? No [email or web address] Information not available 11/17/2024 Do You Have Difficulty Walking Or Climbing Stairs? No Information not available 11/17/2024 Sex: Unknown Functional Status Question Answer Note LastModified by Organizat ion Details LastModified Time Do you use any illicit or recreational drugs? No [email or web address] Information not available 11/17/2024 What is your level of alcohol consumption? None [email or web address] Information not available 11/17/2024 Are you currently employed? No [email or web address] Information not available 11/17/2024 Are you able to walk? YESWOREST [email or web address] Information not available 11/17/2024 Are you able to care for yourself? 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 No [email or web address] Information not available 11/17/2024 What is your exercise level? Moderate [email or web address] Information not available 11/17/2024 Mental Status Question Answer Note LastModified by Organization D etails LastModified Time Do you feel stressed (tense, restless, nervous, or anxious, or unable to sleep at night)? [id number] [email or web address] Information not available 11/17/2024 Family History Relationship Description Onset Age of this Age Resolved Age Notes LastModified by Organization Details LastModified Time Father Hypertensive disorder [email or web address] Not available 2024 09:43:30 Father Diabetes mellitus [email or web address] Not available 2024 09:43:30 Paternal Grandmother Diabetes mellitus [email or web address] Not available 2024 09:43:30 Mother Heart disease Not available 2024 09:43:30 Mother Diabetes mellitus Not available 2024 09:43:30 Maternal Aunt Malignant neoplasm of uterus [email or web address] Not available 2024 10:09:49 Maternal Grandmother Diabetes mellitus [email or web address] Not available 2024 09:43:30 Sister Disorder of thyroid gland [email or web address] Not available 2024 09:43:30 Maternal Grandfather Diabetes mellitus [email or web address] Not available 2024 09:43:30 Paternal Grandfather Diabetes mellitus [email or web address] Not available 2024 09:43:30 Unspecified Relation Malignant neoplasm of uterus 39 Matern al cousin [email or web address] Not available 01/24/2025 09:58:41 Unspecified Relation Malignant neoplasm of uterus [email or web address] Not available 2024 08:21:51 Medical History Condition Response Allergies (Food, seasonal, environmental ) N Other Y Breast Cancer N Drug/Latex Allergies/Reactions N Blood Transfusion N Dermatologic Disorders N Lung Disease N Defects or Inherited Disease N Breast Problem N Gestational Diabetes N Hematologic disorders N Anesthesia Complications N History of STI N Deep Vein Thrombosis N Polycystic ovary syndrome N Anxiety Disorder N Autoimmune disease N Arthritis N Infertility N Polyps N Acid Reflux (GERD) N History of abnormal pap N Cancer N Stroke N Varicosities N Neurologic/Epilepsy N Endometriosis N High Cholesterol N Headaches N Fibromyalgia N Kidney Disease N Heart Problems N Kidney or Bladder Problems N Thyroid Problems Y GI Problems N Eating Disorder N Anemia [...] SNOMED-CT Code Diagnosis ICD10 Code Diagnosis Note [id number] Solis Bryant MD [place] [address] [address] 01/24/2025 09:58:32 01/24/2025 10:40:52 Menorrhagia 405292524 N92.0 Cyst of bi lateral ovaries [id number] N83.201 N83.202 This patient is a 44-year-ol [...] by Organization Details LastModified Time None Recorded Payers Encounter Date Sequence Insurance Name Policy Number Policy Burris Covered Member ID Burris Member ID Guarantor Name 01/24/2025 1 [facility] [id number] Dev Zaidi [id number] Nova Zaidi Notes Date Note Type Note Provider Name and Address Organization Details Recorded Time 01/24/2025 text/html This patient is a 44-year-old female with severe menorrhagia. We have agreed to perform robotic assisted total hysterectomy bilateral salpingo-oophorect josiah. She understands the risks, benefits, and alternatives. [...] is risk of hemorrhage and infection. Solis Bryant MD [address], [place], [address], [facility] 01/24/2025 10:37:04 OBGyn Episode No OBEpisode recorded.
== END 2025-01-25 11:19 | disposition home or self-care (01) ==
LOC: ANHSURGERY 11:22
PROVIDERS: PCP Physician Assistant Medical; Visit Provider Obstetrics & Gynecology
DX: Z01.818 Encounter for other preprocedural examination (principal); N92.0 Excessive and frequent menstruation with regular cycle
CPT/HCPCS: 36415; 86850; 86900; 86901

== ENCOUNTER 2025-02-03 00:38 | Day surgery (SDC) | payer OTHER, SELFPAY ==
--- NOTE | 2025-01-24 14:43 | SUR.PREOP ---
Report to the Outpatient Waiting Room, entrance under the green pavilion located off [facility], at time _0600_ on date _02/03/2025_. Planned Procedure Time: _0730_.? Time changes happen often and if your time is changed the preop area will call you the afternoon before. - You and your visitor will be asked to self-screen and do not enter if you have any COVID symptoms. Please call surgeon if you need to reschedule. - A mask is optional within the hospital at this time. Patients may have clear liquids (water, carbonated beverages, clear teas, apple juice) until 3 hours (0430) prior to surgery with a maximum of 20 ounces. - No food from midnight until time of surgery and no smoking, or chewing tobacco (or any form of nicotine). No chewing gum, candy or mints. Take only the following medications with a SIP of water on the morning of surgery: _LEVOTHYROXINE_ DO NOT STOP ANY OF YOUR OTHER PRESCRIPTION MEDICATIONS PRIOR TO SURGERY EXCEPT THE FOLLOWING Hold all vitamins and supplements for 3 days per anesthesiologist. Medications to discontinue per physician _NA_ Date to take last dose_NA_ Please no make-up, nail hungarian, hairspray, perfume, deodorant, or body powder the day of surgery.? No jewelry (including any body piercings) or valuables the day of surgery, leave them at home.? Please take a shower or bath the night before, or the morning of, surgery with an antibacterial soap.? Wear comfortable, loose fitting clothing. - Jewelry must be removed prior to entering the operating room.? Rings and piercings that are not removed may be cut off. - The hospital will not accept responsibility for valuables. - Please leave all valuables, including medications, at home the day of surgery. If you are going home after surgery, a licensed residential driver must drive you home.? - NO public transportation without another adult if you receive anesthesia. - We recommend that an adult stay with you for 24 hours following discharge. - We also recommend that you do not drive, make important decision, drink alcoholic beverages, or take any drugs that were not prescribed by your health care provider for at least 24 hours after your discharge time. Follow any additional instructions given to you from your surgeon. Telephone instructions given to _LISA_and asked if any additional questions and then verbalized understanding. Patient advised to call surgeon office or pre surgery nurse liaison [phone] if any additional questions.
[2025-01-24 14:52] VITALS: BMI 25.5
[2025-02-03] VITALS (10 sets, daily range): BP systolic 110–144; BP diastolic 68–86; PULSE 57–78; RESP 11–18; TEMP 36.1–36.9; O2SAT 96–100
--- OUTSIDE RECORDS SUMMARY | 2025-02-03 00:40 | XMS_ITS | Clinical Summary ---
Author Organization [facility] Address [address] [place] [address] Care Team Providers Care Still Pump Operator Name Role Phone Francesca Palomares PA-C Primary Care Provider [phone]- [phone] Allergies No known active allergies Medications multi [...] Comments Blood Pressure 122/78 08/01/2019 9:38 AM TILE LAYER HELPER Pulse 72 08/01/2019 9:38 AM TILE LAYER HELPER Temperature 36.8 C (98.3 F) 08/01/2019 9:38 AM TILE LAYER HELPER Respiratory Rate 18 08/01/2019 9:38 AM TILE LAYER HELPER Oxygen Saturation 98% 08/01/2019 9:38 AM TILE LAYER HELPER Inhaled Oxygen Concentration - - Weight 102.3 kg (225 lb 9.6 oz) 08/01/2019 9:38 AM TILE LAYER HELPER Height 167.6 cm (5' 6) 08/01/2019 9:38 AM TILE LAYER HELPER Body Mass Index 36.41 08/01/2019 9:38 AM TILE LAYER HELPER Plan of Treatment Health Maintenance Due Date [...] patient's age to complete this topic Insurance [facility] [place] [id number] Care Teams Still Pump Operator Relationship Specialty Start Date End Date Francesca Palomares PA-C [address] [place] [address] [address] [place] [address] PCP - General PHYSICIAN SENIOR ART DIRECTOR 01/12/24
--- OUTSIDE RECORDS SUMMARY | 2025-02-03 00:41 | XMS_ITS | Data Portability ---
Author Organization [facility] Address [address] [place] [address] Care Team Providers Care Airport Ramp Agent Name Role Phone RYDER SAURAV Primary Care Provider [phone] Assessment Encounter Date Assessment Date Assessment LastModified [...] is positive need subtyping 16,18/45 12/07/ 025 [facility] (Lab), [address], [place], [address], 12/12/2024 13:00:42 dhea-sulf ate, serum 2024 025 [facility] (Lab), [address], [place], [address], 11/21/2024 19:04:30 hormone panel, serum or plasma 2024 025 [facility] (Lab), [address], [place], [address], 11/21/2024 19:04:30 progester one, serum 2024 025 [facility] (Lab), [address], [place], [address], 11/21/2024 19:04:29 prolactin , serum 2024 025 [facility] (Lab), [address], [place], [address], 11/21/2024 19:04:29 shbg (sex hormone-b inding globulin) , serum 2024 025 [facility] (Lab), [address], [place], [address], 11/21/2024 19:04:31 TSH, serum or plasma 2024 025 [facility] (Lab), [address] [place], [address], 11/21/2024 19:04:31 testoster one free/test osterone total, ratio, serum 2024 025 [facility] (Lab), [address] [place], [address], 11/21/2024 19:04:32 CBC w/ auto diff 2024 025 [facility], [address] [place], [address], 11/21/2024 19:04:28 Referral None recorded. Procedures None recorded. Surgeries robotic assisted hysterect josiah w/bilater al salpingo- oophorect josiah (SURG) 2024 025 [id number], [address], [place], [address], 01/16/2025 12:37:54 Imaging MAMMO, screening , digital, bilateral 2024 025 [email or web address] [facility], [address], [place], [address], 01/09/2025 11:50:42 US, pelvis 2024 025 [email or web address] [facility], [place], [address], 11/23/2024 15:13:10 US, transvagi nal 2024 025 [email or web address] [facility], [address], [place], [address], 11/23/2024 15:13:10 US, pelvis, complete 2024 025 [email or web address] [facility], [address], [place], [address], 11/28/2024 10:38:14 Medication Orders None recorded. Patient TargetsNo targets recorded. Patient InstructionsNo instructions recorded. Reason for Referral None Reported. Results Created Date Observation Date Name Description Value Unit Range Abnormal Flag Note LastModifiedBy Organization Detail LastModifiedTime 11/18/1911/17/2024 CBC W/DIF F WBC 4.7 10'3/ uL 3.5-[address] [facility] (Lab) [address], [place], [address], 11/21/2024 19:04:28 11/18/19 25 11/17/2024 CBC W/DIF F RBC 4.57 10'6/ uL (based on docume nted legal sex) 3.80-[address] [facility] (Lab) [address], [place], [address], 11/21/2024 19:04:28 11/18/19 25 11/17/2024 CBC W/DIF F HGB 12.5 g/dL (based on docume nted legal sex) 11.6-[address] [facility] (Lab) [address], [place], [address], 11/21/2024 19:04:28 11/18/1911/17/2024 CBC W/DIF F HCT 41.0 % (based on docume nted legal sex) 34.0-[address] [facility] (Lab) [address], [place], [address], 11/21/2024 19:04:28 11/18/19 25 11/17/2024 CBC W/DIF F MCV 89.7 fL 80.0-[address] [facility] (Lab) [address], [place], [address], 11/21/2024 19:04:28 11/18/19 25 11/17/2024 CBC W/DIF F MCH 27.4 pg 27.0-[address] [facility] (Lab) [address] [place], [address], 11/21/2024 19:04:28 11/18/1911/17/2024 CBC W/DIF F MCHC 30.5 g/dL 32.0-3 [address] [facility] (Lab) [address] [place], [address], 11/21/2024 19:04:28 11/18/19 25 11/17/2024 CBC W/DIF F RDW 18.5 % 11.0-1 [address] [facility] (Lab) [address], [place], [address], 11/21/2024 19:04:28 11/18/19 25 11/17/2024 CBC W/DIF F plt 195 10'3/ uL 150-[address] [facility] (Lab) [address], [place], [address], 11/21/2024 19:04:28 11/18/19 25 11/17/2024 CBC W/DIF F MPV 13.6 fL 8.8-12 [address] [facility] (Lab) [address], [place], [address], 11/21/2024 19:04:28 11/18/19 25 11/17/2024 CBC W/DIF F neutrophils 68.7 % 34.0-[address] [facility] (Lab) [address], [place], [address], 11/21/2024 19:04:28 11/18/19 25 11/17/2024 CBC W/DIF F lymphocytes 23.1 % 15.0-[address] [facility] (Lab) [address], [place], [address], 11/21/2024 19:04:28 11/18/19 25 11/17/2024 CBC W/DIF F monocytes 6.2 % 1.0-[address] [facility] (Lab) [address], [place], [address], 11/21/2024 19:04:28 11/18/19 25 11/17/2024 CBC W/DIF F eosinophils 0.9 % 0.0-8. [address] [facility] (Lab) [address] [place], [address], 11/21/2024 19:04:28 11/18/19 25 11/17/2024 CBC W/DIF F basophils 0.9 % 0.0-2. [address] [facility] (Lab) [address], [place], [address], 11/21/2024 19:04:28 11/18/1911/17/2024 CBC W/DIF F immature granulocytes 0.2 % no define d refere nce range Immat ure Granu locyt es (IG) repre sents autom ated enume ratio n of Metam yeloc ytes, Myelo cytes and Promy elocy keshawn when IG is < 5%. Blast s are not inclu ded in IG and repor kyle separ ately if prese nt. Not Available [facility] (Lab) [address], [place], [address], 11/21/2024 19:04:28 11/18/1911/17/2024 CBC W/DIF F absolute neutrophils 3.2 10'3/ uL 1.5-8. [address] [facility] (Lab) [address], [place], [address], 11/21/2024 19:04:28 11/18/19 25 11/17/2024 CBC W/DIF F absolute lymphocytes 1.1 10'3/ uL 1.0-4. [address] [facility] (Lab) [address], [place], [address], 11/21/2024 19:04:28 11/18/19 25 11/17/2024 CBC W/DIF F absolute monocytes 0.3 10'3/ uL 0.2-1. [address] [facility] (Lab) [address], [place], [address], 11/21/2024 19:04:28 11/18/19 25 11/17/2024 CBC W/DIF F absolute eosinophils 0.0 10'3/ uL 0.0-0. [address] [facility] (Lab) [address], [place], [address], 11/21/2024 19:04:28 11/18/19 25 11/17/2024 CBC W/DIF F absolute basophils 0.0 10'3/ uL 0.0-0. [address] [facility] (Lab) [address], [place], [address], 11/21/2024 19:04:28 11/18/19 25 11/17/2024 CBC W/DIF [...] blaire book. nm.or g/gen derx Not Available [facility] (Lab) [address], [place], [address], 11/21/2024 19:04:28 11/18/19 25 11/17/2024 PROGE STERO [...] Trime ster 58.70 -214. [address] [facility] (Lab) [address], [place], [address], 11/21/2024 19:04:29 11/18/19 25 11/17/2024 PROLA CTIN prolactin, total 14.40 NG/mL 4.79-2 3.30 This assay was perfo rmed using [employer] ratio n reage nts and test kits. Value s obtai joan with other assay metho ds or kits [facility]no t be [facility] . Not Available [facility] (Lab) [address] [place], [address], 11/21/2024 19:04:29 11/18/19 25 11/17/2024 DHEA SULFA TE DHEA-sulfate 164 ug/dL Femal e Range s Age(y ) Range (ug/d L) 10-15 34-28 0 15-20 65-36 8 20-25 148-4 07 25-35 99-34 0 35-45 61-33 7 45-55 35-25 6 55-65 19-20 5 65-75 9-246 > 75 12-[address] [facility] (Lab) [address] [place], [address], 11/21/2024 19:04:30 11/18/19 25 11/17/2024 FSH, LH, ESTRA DIOL estradiol 295.0 pg/mL This assay was perfo rmed using [employer] ratio n reage nts and test kits. Value s obtai joan with other assay metho ds or kits canno t be used inter [facility] . Femal e Estra diol Range s: Folli cular phase 12.4- 233 pg/mL Ovula tion phase 41.0- 398 pg/mL Lutea l phase 22.3- 341 pg/mL Postm enopa usal <5-13 8 pg/mL Healt hy Pregn ant Women 1st Trime ster 154-3 243 pg/mL 2nd Trime ster 1561- 31916 pg/mL 3rd Trime ster 8525- >3000 0 pg/mL Not Available [facility] (Lab) [address] [place], [address], 11/21/2024 19:04:30 11/18/19 25 11/17/2024 FSH, LH, ESTRA DIOL FSH 4.3 mIU/m L This assay was perfo rmed using [employer] ratio n reage nts and test kits. Value s obtai joan with other assay metho ds or kits canno t be used inter [facility] . Femal es Folli cular : 3.5-1 2.5 mIU/m L Ovula tion: 4.7-2 1.5 mIU/m L Lutea l: 1.7-7 .7 mIU/m L Postm enopa use: 25.8- 134.8 mIU/m L Not Available [facility] (Lab) [address], [place], [address], 11/21/2024 19:04:30 11/18/19 25 11/17/2024 FSH, LH, ESTRA DIOL LH 12.0 mIU/m L This assay was perfo rmed using [employer] ratio n reage nts and test kits. Value s obtai joan with other assay metho ds or kits canno t be used inter [facility] . Femal es Mid-F ollic ular: 2.4-1 2.6 mIU/m L Mid-C ycle: 14.0- 95.6 mIU/m L Mid-L uteal : 1.0-1 1.4 mIU/m L Postm enopa use: 7.7-5 8.5 mIU/m L Not Available [facility] (Lab) [address], [place], [address], 11/21/2024 19:04:30 11/18/1911/17/2024 TSH, REFLE X FREE T4 TSH 0.32 uIU/m L 0.30-[address] [facility] (Lab) [address] [place], [address], 11/21/2024 19:04:31 11/18/19 25 11/17/2024 HUMAN SEX HORMO NE LAYLA NG GLOBU ANATOLY sex hormone binding globulin 73.9 nmole s/L 18.2-[address] [facility] (Lab) [address], [place], [address], 11/21/2024 19:04:31 11/18/19 25 11/17/2024 TESTO STERO NE, FREE( DIALY SIS) AND TOTAL (LC/M S/MS) testosterone , total 20 NG/dL 2-45 For addit ional [facility] monahan e refer to http: //[facility] arnaldo fernandez.que stdia gnost ics.c om/fa q/ Total Testo stero neLCM SMSFA Q165 (This link is being provi ded for [facility] luis nal/ educa kary l purpo ses only. ) This test was devel oped and its anna tical perfo rmanc e baltazar cteri stics have been deter mined by [employer] [place], [place]. It has not been clear ed or appro wiliam by the U.S. Food and Drug Admin istra tion. This assay has been valid ated pursu ant to the CLIL regul ation s and is used for clini je purpo ses. Not Available [facility] (Lab) [address], [place], [address], 11/21/2024 19:04:32 11/18/19 25 11/17/2024 TESTO STERO NE, FREE( DIALY SIS) AND TOTAL (LC/M S/MS) testosterone , free 1.7 pg/mL 0.1-6. 4 This test was devel oped and its anna tical perfo rmanc e baltazar cteri stics have been deter mined by [employer] [place]. It has not been clear ed or appro wiliam by the U.S. Food and Drug Admin istra tion. This assay has been valid ated pursu ant to the CLIA regul ation s and is used for clini je purpo ses. Perfo rming Organ izati on [facility] n: Site ID: AMD Name: [employer] leanne Addre ss: [id number] [facility] [employer] [place], [place] Direc tor: Dacia Cotton MD PhD Not Available [facility] (Lab) [address], [place], [address], 11/21/2024 19:04:32 12/08/19 25 12/07/2024 IMAGE GUIDE D PAP AND HPV REGAR DLESS image guided Pap, HPV regardless of Pap result SEE RESULT S BELOW CASE REPOR T: Cytol ogy Gynec ologi je Repor t Case: [id number] Autho manav g Provi xiomara: Dermo dy, Camryn , ANP, WELDER GAS Colle cted: 12/07 0905 Order ing Locat [...] epith elial Narda fernandez or Td reeder ([facility]) . Elect brijesh garcia by Sammie Lassiter, [...] as clini tari whitfield nted. Not Available [facility] (Lab) [address], [place], [address], 12/12/2024 13:00:42 11/19/19 USkatlin s No observ ation record ed. [email or web address] Not Available 2024 16:38:26 11/24/19 25 11/23/2024 US, pelvi s No observ ation record ed. [email or web address], [place], [address], 11/23/2024 13:26:45 11/24/19 25 11/23/2024 US, trans vagin al No observ ation record ed. [email or web address] [facility] [address], [place], [address], 11/23/2024 13:26:56 11/24/19 25 11/23/2024 US, pelluis s No observ ation record ed. [email or web address] [address], [place], [address], 12/07/2024 11:14:40 Result Notes None recorded. Procedures Surgical History Date Name Laterality Status Provider Name and Address Organization Details Recorded Time 11/08/19 25 Date of Last Pap Smear completed [facility] 12/07/2024 09:43:35 07/31/19 24 Date of Last Mammogram completed [facility] 11/17/2024 09:43:30 04/03/20 10 Caesarean Section completed [facility] 11/17/2024 09:43:31 Tonsillectomy completed [facility] 11/17/2024 09:43:31 Laparoscopy completed [facility] 11/17/2024 09:43:31 Orthopedic Surgery completed Alexandria Ulrich [facility] 12/09/2024 12:15:02 Imaging Results None recorded. [...] Body mass index (BMI) Body weight Systolic And Diastolic Provider Name and Address Organization Details Last Updated DateTime 11/17/2024 167.64 cm 27.2 kg/m2 52760.39 g 133/81 mm[Hg] [facility] 11/17/2024 09:57:56 Date Recorded Body height Body mass index (BMI) Body weight Systolic And Diastolic Provider Name and Address Organization Details Last Updated DateTime 12/07/2024 167.64 cm 26.8 kg/m2 12392.05 g 142/85 mm[Hg] Marcelina Chan [facility] 12/07/2024 09:16:57 Date Recorded Body height Body mass index (BMI) Body weight Systolic And Diastolic Provider Name and Address Organization Details Last Updated DateTime 12/09/2024 167.64 cm 26.1 kg/m2 55618.96 g 136/93 mm[Hg] [facility] 12/09/2024 12:13:27 Date Recorded Body height Body mass index (BMI) Body weight Systolic And Diastolic Provider Name and Address Organization Details Last Updated DateTime 01/24/2025 167.64 cm 27.3 kg/m2 94110.11 g 139/84 mm[Hg] [facility] 01/24/2025 10:03:34 Social History Question Answer Notes LastModified by Organizat ion Details LastModified Time Tobacco Smoking Status Never Smoker [facility] 11/17/2024 09:46:21 Do You Have An Advance Directive? No [email or web address] Information n ot available 11/17/2024 Are You Blind Or Do You Have Difficulty Seeing? No [email or web address] Information n ot available 11/17/2024 What Is Your Level Of Caffeine Consumption? Moderate [email or web address] Information not available 11/17/2024 How Much Tobacco Do You Chew? None [email or web address] Information not available 11/17/2024 In The 14 Days Before Symptom Onset, Have You Had Close Contact With A Laboratory-confirm ed COVID-19 While That Case Was Ill? No [email or web address] Information n ot available 11/17/2024 In The 14 Days Before Symptom Onset, Have You Had Close Contact With A Person Who Is Under Investigation For COVID-19 While That Person Was Ill? No [email or web address] Information not available 11/17/2024 Have You Been To An Area Known To Be High Risk For COVID-19? No [email or web address] Information not available 11/17/2024 Are You Deaf Or Do You Have Serious Difficulty Hearing? No [email or web address] Information not available 11/17/2024 What Type Of Diet Are You Following? REGULAR [email or web address] Information n ot available 11/17/2024 What Is The Highest Grade Or Level Of School You Have Completed Or The Highest Degree You Have Received? [id number] Information not available 11/17/2024 Are There Any Guns Present In Your Home? No [email or web address] Information not available 11/17/2024 Do You Use Protection During Sex? Always [email or web address] Information not available 11/17/2024 Do You Use Your Seat Belt Or Car Seat Routinely? Yes [email or web address] Information not available 11/17/2024 Do You Have Smoke And Carbon Monoxide Detectors In Your Home? Yes [email or web address] Information not available 11/17/2024 How Much Tobacco Do You Smoke? No [email or web address] Information not available 11/17/2024 Do You Use Sunscreen Routinely? No [email or web address] Information not available 11/17/2024 Have You Used IV Drugs? No Information not available 11/17/2024 Do You Have Difficulty Walking Or Climbing Stairs? No [email or web address] Information not available 11/17/2024 Sex: Unknown Functional Status Question Answer Note LastModified by Organizat ion Details LastModified Time Do you use any illicit or recreational drugs? No [email or web address] Information not available 11/17/2024 What is your level of alcohol consumption? None [email or web address] Information not available 11/17/2024 Are you currently employed? No Information not available 11/17/2024 Are you able to walk? YESWOREST [email or web address] Information not available 11/17/2024 Are you able to care for yourself? Yes Information not available 11/17/2024 What is your occupation? Stay at home mom [email or web address] Information not available 11/17/2024 Do you have difficulty dressing or bathing? No [email or web address] Information not available 11/17/2024 What is your exercise level? Moderate [email or web address] Information not available 11/17/2024 Mental Status Question Answer Note LastModified by Organization D etails LastModified Time Do you feel stressed (tense, restless, nervous, or anxious, or unable to sleep at night)? [id number] [email or web address] Information not available 11/17/2024 Family History Relationship Description Onset Age of this Age Resolved Age Notes LastModified by Organization Details LastModified Time Father Hypertensive disorder [email or web address] Not available 2024 09:43:30 Father Diabetes mellitus [email or web address] Not available 2024 09:43:30 Paternal Grandmother Diabetes mellitus Not available 2024 09:43:30 Mother Heart disease [email or web address] Not available 2024 09:43:30 Mother Diabetes mellitus [email or web address] Not available 2024 09:43:30 Maternal Aunt Malignant neoplasm of uterus [email or web address] Not available 2024 10:09:49 Maternal Grandmother Diabetes mellitus [email or web address] Not available 2024 09:43:30 Sister Disorder of thyroid gland [email or web address] Not available 2024 09:43:30 Maternal Grandfather Diabetes mellitus [email or web address] Not available 2024 09:43:30 Paternal Grandfather Diabetes mellitus [email or web address] Not available 2024 09:43:30 Unspecified Relation Malignant neoplasm of uterus 39 Matern al cousin [email or web address] Not available 01/24/2025 09:58:41 Unspecified Relation Malignant neoplasm of uterus [email or web address] Not available 2024 08:21:51 Medical History Condition [...] SNOMED-CT Code Diagnosis ICD10 Code Diagnosis Note [id number] Solis Altman MD [facility] [address] [address] 11/17/2024 09:40:43 11/17/2024 11:09:32 Abnormal uterine bleeding [id number] 9100 N93.9 Hx of endometrio sis and fibroid uterus.Rec ommended updated pelvic ultrasound and labs.Patie nt to follow-up with to review labs/imagi ng and for surgical consult. [id number] Solis Altman MD [facility] [address] [address] 11/23/2024 10:11:10 11/23/2024 11:27:58 Abnormal uterine bleeding [id number] 9100 N93.9 D25.9 [id number] Solis Altman MD [facility] [address] [address] 12/07/2024 08:59:44 12/07/2024 09:42:52 Well woman health examination 456797192 Z01.419 Annual gynecologi je exam performed. Patient [...] STI testing - declined Screening mammography 24 986919 Z12.31 Uterine leiomyoma 995184 05 D25.9 Reviewed ultrasound results from 11/23/34 for AUB and pelvic pain with patient - two fibroids noted on ultrasound and left hemorrhagi c cyst. Discussed possible treatment options. Patient verbalizes understand ing.Sapphire cruz has ultrasound f/u scheduled with on 12/09 for surgical consult and to further discuss results. [id number] Solis Altman MD [facility] [address] [address] 12/09/2024 11:24:50 12/09/2024 12:40:50 Endometriosis (clinical) 041920780 N80.9 Family his tory of malignant neoplasm of uterus 640584046 Z80.49 Pain in pelvis 47222487 R10.2 This patient is a 44year-old female [...] is risk of hemorrhage and infection. Menorrhagia 839767833 N9 2.0 [id number] Solis Altman MD [facility] [address] [address] 01/24/2025 09:58:32 01/24/2025 10:40:52 Menorrhagia 366592639 N92.0 Cyst of bi lateral ovaries [id number] 0556904 N83.201 N83.202 This patient is a 44-year-ol [...] Member ID Burris Member ID Guarantor Name 01/31/2025 1 [facility] [id number] Dev Zaidi [id number] Nova Zaidi Notes Date Note Type Note Provider Name and Address Organization Details Recorded Time 11/17/2024 text/html 44 y/o female presents with c/o for heavy, irregular periods and pelvic pain.Patient states that she was evaluated at [facility] last December 2023 for this concern, and [...] itching CAMRYN UP NP [address], [place], [address], [facility] 11/17/2024 10:49:40 12/07/2024 text/html Annual GYNReport [...] for annual well woman exam. Marcelina enriquez, [facility] 12/07/2024 09:47:17 12/09/2024 text/html This patient [...] infection. Solis Altman MD [address], [place], [address], [facility] 12/09/2024 12:39:14 01/24/2025 text/html This patient [...] infection. Solis Altman MD [address], [place], [address], [facility] 01/24/2025 10:37:04 OBGyn Episode Ob Episode Information Episode Created Date Number of Fetuses Patient Bloodtype Patient rh Status Prepregnancy Weight lbs Domestic Partner Domestic Partner Phone Father Name Injection Press Operator Status 11/18/19 25 2 CLOSED Fetus Data First Name Last Name Admitted to NICU Weight (g) Sex Living Outcome Pediatric Complications Fetus ID Race Codes Race Delivery Type 2494.75 6 F Full Term 94171 Primary 2891.64 9 F Full Term 75474 Primary Malvin Calculation Initial Malvin Date Initial [...] Domestic Partner Domestic Partner Phone Father Name Injection Press Operator Status 11/18/19 25 1 CLOSED Fetus Data First Name Last Name Admitted to NICU Weight (g) Sex Living Outcome Pediatric Complications Fetus ID Race Codes Race Delivery Type 3997.05 2704 F Full Term [id number] Vaginal Delivery Malvin Calculation Initial Malvin Date [...]
[2025-02-03] MEDS: LACTATED RINGERS 1,000 ML 30 ML IV CONT ×2 (07:00→09:28)
[2025-02-03] MEDS: KETOROLAC 15 MG/ML VIAL (*BKC) IV PUSH ×2 (07:10→09:12)
[2025-02-03] MEDS: ACETAMINOPHEN 500 MG TABLET 1000 MG PO ×3 (07:10→21:24)
--- NOTE | 2025-02-03 07:21 | WPDHPUPDATE1 ---
History and Physical Update Update Date/Time: 02/03/25 07:21 History and Physical has been reviewed, including an updated exam of the patient. There are NO changes in the patient's condition. Risks, benefits, and alternatives have been discussed and questions answered. Patient agrees to proceed with procedure.
--- NOTE | 2025-02-03 07:28 | WPDANESEPPF ---
Anes - Initial Pre Proc Eval Procedure: Operation Date: 02/03/25 07:30 Proposed Procedures p Robotic Assisted Hysterectomy with Bilateral Salpingo-oophorectomy - Solis Altman MD Date/Time: 02/03/25 07:28 Surgeon: Solis Altman MD Pre Op Diagnosis: Menorrhagia with Reg Cycle Patient Data Age: 44 Gender: F Height: 1.68 m Weight: 71.81 kg Allergies Allergy/AdvReac Type Severity Reaction Status Date / Time No Known Allergies Allergy Verified 01/24/25 14:33 Home Medications ?Medication ?Instructions ?Recorded ?Confirmed ?Type levothyroxine 150 mcg tablet 150 mcg PO DAILY #90 tabs 12/30/24 01/24/25 Rx Patient hx anesthesia problems: none Family hx anesthesia problems: none Results Review: All pre-operative results and documents have been reviewed as part of the pre-operative evaluation. PENDING SALE TO [facility] Past Medical History Medical History Hypothyroidism Thyroid disease Surgical History Surgical History History of delivery 2010 Family History Family History Other Cerebrovascular accident Diabetes mellitus Heart disease Hypertension Social History Social History Smoking status: Never smoker Tobacco type: cigarettes Second hand tobacco smoke exposure: No Alcohol intake: never Alcohol use details: Rarely Substance use: never Substance use type: does not use Lack of Transportation: No Lack of Food: Never True Current Housing: I Have Housing Concerned About Future Housing: No Difficulty Paying Gas/Electric Bills: No Difficulty Paying for Meds: No Currently Unemployed: No Difficulty w/ Childcare or Family Care: No Living arrangements: with family Additional living arrangements comments: WITH AND CHILDREN Occupation/Education: other Additional occupation/education comments: Stay at home mom Gender identity (if verbalized by the patient): Female Sexual Orientation (if Verbalized by the Patient): Straight or Heterosexual Spiritual care concerns: No Anes - Eval Final PreProcedure Day of Procedure 02/03/25 07:28 Patient weight: normal Heart: regular rate and rhythm Lungs: clear to auscultation Airway: Mallampati scale class II Neurological: alert and oriented Last oral intake: >/= 8 hours ASA classification: II Emergent: no Anesthetic plan: proceed Anesthesia type and monitoring: general ETT and standard monitoring Results Review: All pre-operative results and documents have been reviewed as part of the pre-operative evaluation. Informed Consent: The patient's anesthetic plan and its attendant risks and benefits were discussed with the patient/family/POA. Questions were solicited and answers provided to the satisfaction of the patient/family/POA.
[2025-02-03] MEDS: ceFAZolin 2 GM in SODIUM CHLORIDE 0.9% IV 50 ML 100 ML IVPB (07:33)
--- NOTE | 2025-02-03 08:35 | S_PTH ---
PATIENT: Nova Zaidi LOC: [facility] U#:[id number] AGE/SX: 44/F ROOM: RE02/03/[address]: Solis Altman MD : 1980 BED: DIS: 02/04/2025 SPEC #: [id number] RECD: 02/03/25 10:17 STATUS: SAMIA REQ #: [id number] ANCELMO: 02/03/25 08:[address]: Solis Altman DEPT: [facility] Surgical RECD BY: Irina Serrato ENTERED: 02/03/25 10:17 SP TYPE: Surgical OTHR DR: Francesca Palomares PA-C Tissues: A - Uterus Procedures: Hematoxylin and Eosin Stain Gross and Microscopic Level 5
--- NOTE | 2025-02-03 09:34 | W.PM.PROC2 ---
Procedure Note - Detailed Date of Procedure 02/03/25 Pre-op Diagnosis Menorrhagia with Reg Cycle Post-op Diagnosis Same Procedure Performed Robot assisted Total hysterectomy with bilateral salpingectomy. Surgeon Solis Altman MD Anesthesia General Indications heavy vaginal bleeding Findings normal-appearing uterus, ovaries, and tubes. Some scarring over the posterior cul-de-sac peritoneum. Description of Procedure This patient was taken to the operating room. She was prepped and draped in the dorsal lithotomy position after induction of general anesthesia. The uterine manipulator and Sunita cup were placed. This was done with a speculum and tenaculum. The speculum was placed. The cervix was grasped with a tenaculum. The stay sutures were placed at 3 and 9:00 a.m.. The stay sutures of 0 Vicryl were tied to the appropriately Size scope after it was slipped around the cervix.. The tip of the NAKUL manipulator was placed in the intrauterine cavity. The cup was slid into place around the cervix and into the fornices. It was locked into place. The sutures were then wrapped around the handle and tied under tension. A 8 mm skin incision was made in the left upper quadrant the abdomen. a 5 mm Visiport trocar was inserted into abdominal cavity and pneumoperitoneum was achieved. A 8 mm supraumbilical incision was made and a 8 mm trocar was inserted into the intrauterine cavity under direct visualization of the scope. an 8 mm incision was made in the right upper quadrant of the abdomen and an 8 mm robotic trocar was placed the inter uterine cavity under direct visualization the scope. An 11 mm trocar was inserted in the right upper quadrant of the abdomen rectal is a cystoscope after an incision was made there as well. The robot was docked. Electronic Orientation of the robot was performed. Bilateral ureteral lysis was performed. This was done from the pelvic brim down to the uterine artery. This was done with careful dissection using sharp and blunt dissection.Bilateral salpingo-oophorectomy was performed. The bilateral infundibulopelvic ligaments were cauterized thoroughly and transected after visualization of the ureter passing over the pelvic brim. In stepwise fashion around the ovary the mesosalpinx was cauterized transected. The Fallopian tube tissue/ mesosalpinx was cauterized transected a stepwise fashion medially to the cornua of the uterus. the tube was transected at the cornua and cauterized thoroughly. The bilateral tubes and ovaries were taken out through the large air lock port. Then In a stepwise fashion along the lateral aspects of the uterus the round ligament and broad ligaments were cauterized transected down to the level of the uterine arteries. A bladder flap was created in the bladder was moved distally to the end of the cervix and over the Sunita cup. The bilateral uterine arteries were cauterized and transected. Colpotomy was then performed. In a circumferential fashion the vagina was transected using unipolar cautery. The incision was made down on the Sunita cup. The uterus and cervix were taken out through the vagina. A pneumo occluder was placed in the vagina. The vaginal cuff was closed with a 0 V lock suture in a running fashion. The pelvis was irrigated with copious amounts antibiotic irrigation. The ureters were again examined and found to be intact and flowing freely under the uterine arteries into the bladder. The bladder was intact. It was examined directly. Cystoscopy was performed after administration of methylene blue. The cystoscope was inserted. Bladder was distended with fluid. The ureteric meatus was observed bilaterally. Blue fluid was seen to egress bilaterally. The bladder was drained and the cystoscope was withdrawn. The vagina was irrigated with Betadine solution after removal of the Pneumo occluder. the trocars were removed after the robot was undocked. The skin was closed with subacute or Dermabond. The patient was taken to recovery room. She was stable condition. Sponge lap and needle counts were correct x2. Estimated Blood Loss 125 Urine Output 800 Drains Yes Packing No Pathology Yes Complications No immediate complications Condition Stable Disposition Floor
[2025-02-03] MEDS: fentaNYL CITRATE INJ (*CRX) 100 MCG/2 ML VIAL 25 MCG IV PUSH ×4 (09:52→10:18)
[2025-02-03] MEDS: SIMETHICONE 80 MG TAB.CHEW PO ×2 (11:52→16:27)
[2025-02-03] MEDS: oxyCODONE HCL (*CRX) 5 MG TAB IR PO ×2 (11:53→17:41)
--- NOTE | 2025-02-03 12:56 | PC.NURSE ---
This patient, Nova Zaidi, was received from PACU via bed on 02/03/25 at 1052. Patient/family oriented to unit policies and routines.
[2025-02-03] MEDS: KETOROLAC 30 MG/ML VIAL (*BKC) IV PUSH ×2 (15:17→21:23)
[2025-02-03] MEDS: DOCUSATE SODIUM 100 MG CAPSULE PO (16:27)
[2025-02-03] MEDS: oxyCODONE HCL (*CRX) 5 MG TAB IR 10 MG PO (22:39)
[2025-02-04 00:33] VITALS: BP 106/59; PULSE 74; RESP 12; TEMP 37; O2SAT 97
[2025-02-04] MEDS: ACETAMINOPHEN 500 MG TABLET 1000 MG PO ×2 (03:17→09:43)
[2025-02-04] MEDS: IBUPROFEN 600 MG TABLET PO ×2 (03:18→09:43)
[2025-02-04] MEDS: oxyCODONE HCL (*CRX) 5 MG TAB IR PO ×2 (07:34→11:38)
[2025-02-04] MEDS: DOCUSATE SODIUM 100 MG CAPSULE PO (07:34)
[2025-02-04] MEDS: SIMETHICONE 80 MG TAB.CHEW PO ×2 (07:34→11:38)
[2025-02-04 08:16] VITALS: BP 108/58; PULSE 65; RESP 16; TEMP 36.6; O2SAT 98
--- NOTE | 2025-02-04 12:36 | P.PNOB_ITS ---
BROADCAST SYSTEMS ENGINEER - A/P Postoperative Procedures: Procedures Operation Date: 02/03/25 07:30 Actual Procedure Side Surgeon p Robotic Assisted Hysterectomy with Bilateral Salpingo-oophorectomy Bilateral Solis Altman MD Postoperative day: 1 Postoperative status: doing well Postoperative plan: see orders Time Spent With Patient Time: Total time spent is greater than 50% in coordination of care (as documented) at patient's floor/unit and/or counseling patient: Time with patient: less than 15 minutes BROADCAST SYSTEMS ENGINEER- PN:Subj Post-Op Subjective Date/time seen: 02/04/25 12:36 Subjective: patient reports feeling better, patient has no complaints and pain is well controlled Exam Const: General: healthy appearing, comfortable and no acute distress Resp: Auscultation: clear to auscultation bilaterally, no rales, no rhonchi and no wheezes Cardio: Rate: regular rate Heart sounds: no click, no murmurs and no rubs GI: Inspection: non-distended Auscultation: normal bowel sounds Extrem: General: normal to inspection, no pedal edema and no calf tenderness BROADCAST SYSTEMS ENGINEER - PN: Obj Data Vital Signs Vital Signs: Vital Signs - 24 hr 02/03/25 15:20 02/03/25 19:35 02/04/25 00:33 Temperature 98.1 F 98.2 F 98.6 F Pulse Rate 62 68 74 Respiratory Rate 18 16 12 Blood Pressure 141/74 H 110/69 106/59 L Pulse Oximetry 99 99 97 Oxygen Delivery 02/04/25 07:30 02/04/25 08:16 Temperature 97.8 F Pulse Rate 65 Respiratory Rate 16 Blood Pressure 108/58 L Pulse Oximetry 98 Oxygen Delivery Room Air Intake/Output Intake/Output: Intake & Output 02/01/25 02/02/25 02/03/25 02/04/25 23:59 23:59 23:59 23:59 Intake Total 2390 Output Total 2235 Balance 155 Meds/Results Medications: Active Medications Generic Name Dose Route Start Last Admin Trade Name Freq PRN Reason Stop Dose Admin Acetaminophen 1,000 mg 02/03/25 12:00 02/04/25 09:43 Acetaminophen 500 Mg Tablet PO 1,000 mg Q6HR JUANITA Administration Docusate Sodium 100 mg 02/03/25 17:00 02/04/25 07:34 Docusate Sodium 100 Mg Capsule PO 100 mg BID JUANITA Administration Ibuprofen 600 mg 02/04/25 06:00 02/04/25 09:43 Ibuprofen 600 Mg Tablet PO 600 mg Q6HR JUANITA Administration Levothyroxine Sodium 150 mcg 02/04/25 06:30 02/04/25 07:27 Levothyroxine Sodium 150 Mcg Tablet PO Not Given DAILY@0630 JUANITA Naloxone HCl 0.1 mg 02/03/25 10:45 Naloxone Hcl 0.4 Mg/Ml Vial IV PUSH Q2M PRN Respiratory rate less than 10 Ondansetron HCl 4 mg 02/03/25 10:45 Ondansetron Inj 4 Mg/2 Ml Vial IV PUSH Q6H PRN Nausea And Vomiting Oxycodone HCl 5 mg 02/03/25 10:45 02/04/25 11:38 Oxycodone Hcl (*Crx) 5 Mg Tab Ir PO 5 mg Q4H PRN Administration Pain Rated 4-6 Oxycodone HCl 10 mg 02/03/25 10:45 02/03/25 22:39 Oxycodone Hcl (*Crx) 5 Mg Tab Ir PO 10 mg Q6H PRN Administration Pain Rated 7-10 Simethicone 80 mg 02/03/25 12:00 02/04/25 11:38 Simethicone 80 Mg Tab.Chew PO 80 mg TIDWM JUANITA Administration
== END 2025-02-04 13:21 | disposition home or self-care (01) ==
LOC: ANHSURGERY 06:10 → ANHOB2 10:48
PROVIDERS: PCP Physician Assistant Medical; Visit Provider Obstetrics & Gynecology
PROC: (CPT 58571; principal; 2025-02-03 07:30)
DX: N92.0 Excessive and frequent menstruation with regular cycle (principal); N88.8 Other specified noninflammatory disorders of cervix uteri; D25.1 Intramural leiomyoma of uterus; N83.8 Other noninflammatory disorders of ovary, fallopian tube and broad ligament; N83.202 Unspecified ovarian cyst, left side; N83.201 Unspecified ovarian cyst, right side
CPT/HCPCS: 58571; S2900; 88307; 99199; J0690; A9270; J1100; J1171; J1885; J2003; J2250; J2405; J2704; J3010; J7030; J7120; Q9968

== ENCOUNTER 2025-04-07 09:47 | Emergency (ER) | payer OTHER, SELFPAY ==
--- NOTE | ~2025-04-07 | CT_ITS ---
EXAMINATION: CT abdomen pelvis w con DATE: 04/07/2025 10:51 INDICATION: Lower abdominal pain 9 weeks postop hysterectomy TECHNIQUE: Computed tomography (CT) of the abdomen and pelvis was performed with 100 mL Omnipaque-350 intravenous contrast. Automated exposure control and iterative reconstruction technique were employed. The dose-length product was 290.08 mGy-cm. COMPARISON: None FINDINGS: Lung bases are clear. Heart size is normal. No pericardial or pleural effusion. 3.3 x 2.4 cm hypodense lesion with peripheral discontiguous puddling of contrast in segment 4A of liver consistent with a hemangioma. Hepatic steatosis along the ligamentum teres. Gallbladder, spleen, pancreas, bilateral adrenal glands and kidneys are normal. Bowels including the appendix are normal. Bladder is normal. Small amount of likely physiologic free fluid in the deep pelvis. No abscess or free intraperitoneal gas. Bones are unremarkable. IMPRESSION: 1. Status post hysterectomy with small amount of likely physiologic free fluid in the pelvis. No abscess or other acute intra-abdominal/pelvic process. Reviewed, dictated and finalized at location A.
[2025-04-07 09:50] VITALS: BP 132/87; PULSE 70; RESP 16; TEMP 36.7; O2SAT 99
[2025-04-07 10:14] LABS: Hematocrit 42.1 % (37.0-47.0); Hemoglobin 13.3 g/dL (12.0-15.0); Immature Granulocyte Percent A 0.2 % (0-0.5); Lymphocytes Absolute Auto 1.34 K/mm3 (0.9-3.2); Mean Corpuscular HGB Conc 31.6 g/dl (32-36); Mean Corpuscular Hemoglobin 27.8 pg (26-34); Mean Corpuscular Volume 87.9 fl (80-100); Nucleated Red Blood Cells Absolute Auto 0.000 K/mm3 (0.0-0.012); Nucleated Red Blood Cells Perc 0.0 % (0.0-0.2); Platelet Count Result 198 k/mm3 (150-375); Red Blood Count 4.79 M/mm3 (4.2-5.4); White Blood Count 4.8 K/mm3 (4.5-10.0)
[2025-04-07 10:20] LABS: Add Urine Microscopic? YES; Appearance Urine Clear (Clear); Glucose Urine UA Negative (Negative); Leukocyte Esterase Ur Negative LEU/UL (Negative); Nitrate Urine Negative (Negative); Non Pathogenic Casts 0-2; Specific Grav Ur 1.017 (1.001-1.035)
--- OUTSIDE RECORDS SUMMARY | 2025-04-07 10:23 | XMS_ITS | Encounter Summary ---
Author Organization [facility] Healthcare Address [address] [place] [address] Care Team Providers Care Marriage And Family Teacher Name Role Phone Francesca Palomares Primary Care Provider [phone] Encounter Details Date Type Department Care Team (Late st Contact Info) Description 03/25/2025 Results Follow-Up [facility] Medical Group Convenient Care at [address] [address] Letha Quintanilla NP [address] [place] [address] [address] [place] [address] Urine culture Urine, clean voided Social History Tobacco Use Types Packs/Day Years Used Date Smoking Tobacco: Never Assessed Comments Unknown Sex and Gender Information Value Date Recorded Sex Assigned at Not on file Legal Sex Female 7:13 AM CDT Gender Identity Not on file Sexual Orientation Not on file documented as of this encounter Miscellaneous Notes * Result Encounter Note - Lacy Gates LPN - 03/25/2025 4:27 PM CDT Patient viewed results in [employer]t. * Result Encounter Note - Letha Quintanilla NP - 03/25/2025 7:37 AM CDT Please alert patient that urine culture was negative. She can stop taking antibiotics if any were given for a UTI. If s/s persist, she should follow up with PCP. documented in this encounter Plan of Treatment Not on file documented as of this encounter Visit Diagnoses Not on filedocumented in this encounter Care Teams Marriage And Family Teacher Relationship Specialty Start Date End Date Francesca Palomares PA [facility] [place] [address] PCP - General Family Practice 03/09/24 documented as of this encounter
--- OUTSIDE RECORDS SUMMARY | 2025-04-07 10:23 | XMS_ITS | Clinical Summary ---
Author Organization [address] [address] Care Team Providers Care Outboard Motor Assembler Name Role Phone Francesca Palomares Primary Care Provider [phone] Allergies No known active allergies Medications No known medications Active Problems No known active problems Encounters Date Type Department Care Team Description 03/25/2025 Results Follow-Up [facility] Convenient Care at [address] [address] Letha Quintanilla NP Urine culture Urine, clean voided 03/23/2025 5:45 PM CDT Office Visit [facility] at [address] [address] Mike Cleveland NP Dysuria (Primary Dx); Vaginal burning 03/23/2025 5:28 PM CDT - 03/23/2025 11:59 PM CDT Hospital Encounter [address] [address] Dysuria Discharge Disposition: Discharge to home or self care from Last 3 Months Social History Tobacco Use Types Packs/Day Years Used Date Smoking Tobacco: Never Assessed Comments Unknown Sex and Gender Information Value Date Recorded Sex Assigned at Not on file Legal Sex Female 7:13 AM CDT Gender Identity Not on file Sexual Orientation Not on file Obstetrics History Last Filed Vital Signs Vital Sign Reading Time Taken Comments Blood Pressure 124/74 03/23/2025 5:36 PM CDT Pulse 65 03/23/2025 5:36 PM CDT Temperature 36.8 C (98.2 F) 03/23/2025 5:36 PM CDT Respiratory Rate 20 03/23/2025 5:36 PM CDT Oxygen Saturation 98% 03/23/2025 5:36 PM CDT Inhaled Oxygen Concentration - - Weight 66.7 kg (147 lb) 03/23/2025 5:36 PM CDT Height - - Body Mass Index - - Plan of Treatment Health Maintenance Due Date Last Done Comments Breast Cancer Screening-Mammogram 1980 Cervical Cancer Screening 1980 Depression Screening 1980 Hepatitis C Screening 1980 DTaP/Tdap/Td Vaccine (1 - Tdap) 1991 Varicella Vaccines (1 of 2 - 13+ 2-dose series) 1992 Hepatitis B Screening 1998 Regular Well Visit/Exam 18-64 1998 Pneumococcal vaccine <65 (1 of 2 - PCV) 1999 HPV Vaccines (1 - 3-dose SCDM series) 2007 Influenza Vaccine (#1) 2025 04/01/2019 Procedures Procedure Name Priority Date/Time Associated Diagnosis Comments URINE CULTURE Routine 03/23/2025 5:28 PM CDT Dysuria POCT URINALYSIS DIPSTICK Routine 03/23/2025 5:26 PM CDT Dysuria from Last 3 Months Results * Urine culture Urine, clean voided (03/23/2025 5:28 PM CDT) Report Final Report: Less than 100,000 colonies/mL (clinically insignificant growth based on current clinical standards) Comment:Testing performed by : [facility], [address] [facility] [place]., [address] Organism (CLINICALLY INSIGNIFICANT GROWTH ANGELA LOZA Urine, clean voided 03/23/2025 5:28 PM CDT 03/23/2025 10:25 PM CDT Narrative ANGELA LOZA - 03/25/2025 7:30 AM CDT Testing performed by [facility] Microbiology Laboratory ([phone]) us Mike Cleveland NP LAB MICROBIOLOGY - GENERAL ALFREDO ULLOA Final Result ANGELA LOZA [address] Department [place] [address] * POCT urinalysis dipstick (03/23/2025 5:26 PM CDT) Color, Urine, POC Light Yellow Clarity, ur, POC Clear Clear Glucose, ur, POC Negative Negative Bilirubin, ur, POC Negative Negative Ketones, ur, POC Negative Negative Specific [place], POC 1.010 1.003 - 1.030 Blood, ur, POC Negative Negative pH, ur, POC 7.0 5.0 - 8.0 Protein, ur, POC Negative Negative Urobilinogen, urine, POC 0.2 0.2 - 1.0 mg/dL Nitrite, ur, POC Negative Negative Leukocytes, ur, POC Negative Negative Lot Number [id number] Urine 03/23/2025 5:26 PM CDT Mike Cleveland NP POINT OF CARE TEST ORDERABLES F inal Result from Last 3 Months Insurance [facility] HMO/PPO Address: [facility] [address] [place] [address] [facility] HMO/PPO Address: [facility] [address] [place] [address] Care Teams Outboard Motor Assembler Relationship Specialty Start Date End Date Francesca Palomares PA [address] [place] [id number] PCP - General Family Practice 03/09/24
--- OUTSIDE RECORDS SUMMARY | 2025-04-07 10:23 | XMS_ITS | Clinical Summary ---
Author Organization [facility] Address [address] [place] [address] Care Team Providers Care Sheet Metal Technician Name Role Phone Francesca Palomares PA-C Primary Care Provider [phone] Allergies No known active allergies Medications multi [...] Comments Blood Pressure 122/78 08/01/2019 9:38 AM RESIDENTIAL PROGRAM DIRECTOR Pulse 72 08/01/2019 9:38 AM RESIDENTIAL PROGRAM DIRECTOR Temperature 36.8 C (98.3 F) 08/01/2019 9:38 AM RESIDENTIAL PROGRAM DIRECTOR Respiratory Rate 18 08/01/2019 9:38 AM RESIDENTIAL PROGRAM DIRECTOR Oxygen Saturation 98% 08/01/2019 9:38 AM RESIDENTIAL PROGRAM DIRECTOR Inhaled Oxygen Concentration - - Weight 102.3 kg (225 lb 9.6 oz) 08/01/2019 9:38 AM RESIDENTIAL PROGRAM DIRECTOR Height 167.6 cm (5' 6) 08/01/2019 9:38 AM RESIDENTIAL PROGRAM DIRECTOR Body Mass Index 36.41 08/01/2019 9:38 AM RESIDENTIAL PROGRAM DIRECTOR Plan of Treatment Health Maintenance Due Date [...] Years) (1 of 2 - PCV) 1999 HPV Vaccines (1 - 3-dose SCD M series) 2007 Cervical Cancer Screening Pa p with HPV Testing (Age 30 to 64) Every 5 Years 2010 Cervical Cancer Screening with HPV 2010 Mammogram Screening 2020 COVID-19 Vaccine (2023-2 5 season) 2025 Meningococcal B Vaccine Aged Out No l onger eligible based on patient's age to complete this topic Meningococcal Vaccine Aged Out No mariann svetlana eligible based on patient's age to complete this topic RSV Immunizations Under 20 Months Aged Out No longer eligible based on patient's age to complete this topic Insurance [facility] Care Teams Sheet Metal Technician Relationship Specialty Start Date End Date Francesca Palomares PA-C [address] [place] [address] [address] [place] [address] PCP - General PHYSICIAN DEPARTMENT CHAIR 01/12/24
[2025-04-07 10:27] LABS: Alanine Aminotransferase 14 U/L (6-35); Albumin Level 4.6 g/dL (3.5-5.1); Alkaline Phosphatase 49 U/L (38-126); Anion Gap 8 mmol/L (4-12); Aspartate Amino Transferase 24 U/L (14-36); Bilirubin,Total 0.7 mg/dL (0.2-1.3); Blood Urea Nitrogen 11 mg/dL (7-17); Calcium 8.9 mg/dL (8.4-10.2); Carbon Dioxide 27 mmol/L (22-30); Chloride 104 mmol/L (98-107); Estimated CRCL calculation 87 ml/min; Estimated Glomerular Filt Rate > 60; Glucose 93 mg/dL (65-110); Lipase 161 U/L (23-300); Potassium 4.0 mmol/L (3.4-5.0); Sodium 139 mmol/L (137-145); Total Protein 7.6 g/dL (6.3-8.2)
--- OUTSIDE RECORDS SUMMARY | 2025-04-07 10:45 | XMS_ITS | Clinical Summary ---
Author Organization [address] [address] Care Team Providers Care Granite Polisher Apprentice Name Role Phone Francesca Palomares Primary Care Provider [phone] Allergies No known active allergies Medications No known medications Active Problems No known active problems Encounters Date Type Department Care Team Description 03/25/2025 Results Follow-Up [facility] Convenient Care at [address] [address] Letha Quintanilla NP Urine culture Urine, clean voided 03/23/2025 5:45 PM CDT Office Visit [facility] Convenient Care at [address] [address] Mike Cleveland NP Dysuria (Primary Dx); Vaginal burning 03/23/2025 5:28 PM CDT - 03/23/2025 11:59 PM CDT Hospital Encounter [address] [address] Dysuria Discharge Disposition: Discharge to home or [...] current clinical standards) Comment:Testing performed by : [facility] [place] [facility], [address] [facility] [place]., [address] Organism (CLINICALLY INSIGNIFICANT GROWTH ANGELA LOZA Urine, clean voided 03/23/2025 5:28 PM CDT 03/23/2025 10:25 PM CDT Narrative ANGELA LOZA - 03/25/2025 7:30 AM CDT Testing performed by [facility] Microbiology Laboratory ([phone]) us Mike Cleveland NP LAB MICROBIOLOGY - GENERAL ALFREDO ULLOA Final Result ANEGLA LOZA [address] Department [place] [address] * POCT urinalysis dipstick (03/23/2025 5:26 PM CDT) Color, Urine, POC Light Yellow Clarity, ur, POC Clear Clear Glucose, ur, POC Negative Negative Bilirubin, ur, POC Negative Negative Ketones, ur, POC Negative Negative Specific [place], POC 1.010 1.003 - 1.030 Blood, ur, POC Negative Negative pH, ur, POC 7.0 5.0 - 8.0 Protein, ur, POC Negative Negative Urobilinogen, urine, POC 0.2 0.2 - 1.0 mg/dL Nitrite, ur, POC Negative Negative Leukocytes, ur, POC Negative Negative Lot Number [id number] Urine 03/23/2025 5:26 PM CDT Mike Cleveland NP POINT OF CARE TEST ORDERABLES F inal Result from Last 3 Months Insurance [facility] Care Teams Granite Polisher Apprentice Relationship Specialty Start Date End Date Francesca Palomares PA [address] [place] [address] PCP - General Family Practice 03/09/24
--- OUTSIDE RECORDS SUMMARY | 2025-04-07 10:45 | XMS_ITS | Clinical Summary ---
Author Organization [facility] Address [address] [place] [address] Care Team Providers Care Mailer Name Role Phone Francesca Palomares PA-C Primary Care Provider [phone] Allergies No known active allergies Medications multi [...] Comments Blood Pressure 122/78 08/01/2019 9:38 AM INCOMING FREIGHT CLERK Pulse 72 08/01/2019 9:38 AM INCOMING FREIGHT CLERK Temperature 36.8 C (98.3 F) 08/01/2019 9:38 AM INCOMING FREIGHT CLERK Respiratory Rate 18 08/01/2019 9:38 AM INCOMING FREIGHT CLERK Oxygen Saturation 98% 08/01/2019 9:38 AM INCOMING FREIGHT CLERK Inhaled Oxygen Concentration - - Weight 102.3 kg (225 lb 9.6 oz) 08/01/2019 9:38 AM INCOMING FREIGHT CLERK Height 167.6 cm (5' 6) 08/01/2019 9:38 AM INCOMING FREIGHT CLERK Body Mass Index 36.41 08/01/2019 9:38 AM INCOMING FREIGHT CLERK Plan of Treatment Health Maintenance Due Date [...] patient's age to complete this topic Insurance [facility] Care Teams Mailer Relationship Specialty Start Date End Date Francesca Palomares PA-C [address] [place] [address] [address] [place] [address] PCP - General PHYSICIAN OIL WELL PUMPER 01/12/24
--- OUTSIDE RECORDS SUMMARY | 2025-04-07 10:45 | XMS_ITS | Encounter Summary ---
Author Organization [facility] Healthcare Address [address] [place] [address] Care Team Providers Care Front Office Secretary Name Role Phone Francesca Palomares Primary Care Provider [phone] Encounter Details Date Type Department Care Team (Late st Contact Info) Description 03/25/2025 Results Follow-Up [facility] Medical [facility] Convenient Care at [address] [address] Letha Quintanilla NP [address] [place] [address] [address] [place] [address] Urine culture Urine, clean voided [...] 4:27 PM CDT Patient viewed results in [employer]. * Result Encounter Note - Letha Quintanilla [...] on filedocumented in this encounter Care Teams Front Office Secretary Relationship Specialty Start Date End Date Francesca Palomares PA [facility] [place] [address] PCP - General Family Practice 03/09/24 documented as of this encounter
--- NOTE | 2025-04-07 11:20 | ED.ABDPAIN ---
HPI - Abdominal Pain General Chief Complaint: Abdominal Pain Stated Complaint: hysterectomy 9 weeks ago-abdominal pain Time Seen by Provider: 04/07/25 09:50 Source: patient Mode of arrival: ambulatory Limitations: no limitations History of Present Illness HPI narrative: Patient is a 44-year-old female who presents the ED with report of lower abdominal/pelvic pain. Patient reports she is 9 weeks status laparoscopic hysterectomy with oophorectomy under Dr. Vazquez. She states she has had some issues with vaginal spotting since week 4 and pelvic pain since around weeks 6. She has been following in the office for this. Reports yesterday while traveling in a car for a prolonged period, she had severe lower abdominal/pelvic pain. States the pain is somewhat improved today, but she contacted the office and was referred to the ED for further evaluation. Denies nausea, vomiting, fevers. Has had issues with constipation/diarrhea since the surgery. Related Data Home Medications ?Medication ?Instructions ?Recorded ?Confirmed ?Last Taken ?Type estradiol 0.05 mg/24 hr semiweekly 1 patch transdermal 2XW 02/27/25 03/20/25 Unknown History transdermal patch (Minivelle) Allergies Allergy/AdvReac Type Severity Reaction Status Date / Time No Known Allergies Allergy Verified 03/20/25 13:23 Review of Systems Review of Systems: All systems reviewed & are unremarkable except as noted in HPI. All systems reviewed & are unremarkable except as noted in HPI and below PMFSH Past Medical History Medical History Anxiety Hypothyroidism Thyroid disease Surgical History Surgical History History of tonsillectomy History of hysteroscopy (~2004) missed AB History of orthopedic surgery left leg x 4 leg got caught in a 4 [place] History of robot-assisted laparoscopic hysterectomy (02/03/25) Robot assisted Total hysterectomy with bilateral salpingectomy. History of delivery 2010 twins Family History Family History Father Cerebrovascular accident, Onset Age: 45 Heart disease Hypertension Mother Diabetes mellitus Heart disease Grandparent No problems noted. Other Endometrial cancer maternal aunt Social History Social History (Reviewed 04/07/25 @ 19:14 by KHADIJAH Sorensen Smoking status: Never smoker Tobacco type: cigarettes Second hand tobacco smoke exposure: No Alcohol intake: former Alcohol use details: Rarely Substance use: never Substance use type: does not use Do You Feel Safe in your Home?: Yes Lack of Transportation: No Lack of Food: Never True Current Housing: I Have Housing Concerned About Future Housing: No Difficulty Paying Gas/Electric Bills: No Difficulty Paying for Meds: No Currently Unemployed: No Difficulty w/ Childcare or Family Care: No Living arrangements: with family Additional living arrangements comments: WITH AND CHILDREN Occupation/Education: other Additional occupation/education comments: Stay at home mom Gender identity (if verbalized by the patient): Female Sexual Orientation (if Verbalized by the Patient): Straight or Heterosexual Spiritual care concerns: No Exam Narrative: GENERAL: Well appearing, well-nourished, non-toxic, in no acute distress. HEAD: Normocephalic, atraumatic. RESPIRATORY: Airway patent, respirations nonlabored. Clear to auscultation bilaterally, no rales, rhonchi, wheezing. CARDIOVASCULAR: Regular rate and rhythm without murmurs, rubs, or gallops. ABDOMINAL: Soft, minimal tenderness throughout lower abdomen, nondistended. Normoactive BS. MUSCULOSKELETAL: Moves all extremities. No gross deformities. SKIN: Warm, dry, normal color. NEURO: A&O X3. Speech clear. Cranial nerves II-XII grossly intact. Steady gait. No ataxic movements. PSYCHIATRIC: Appropriate mood and affect. Normal interaction. Course Vital Signs Vital signs: Vital Signs Temperature 98.1 F 04/07/25 09:50 Pulse Rate 70 04/07/25 09:50 Respiratory Rate 16 04/07/25 09:50 Blood Pressure 132/87 04/07/25 09:50 Pulse Oximetry 99 04/07/25 09:50 Oxygen Delivery Room Air 04/07/25 09:50 Temperature 98.1 F 04/07/25 09:50 Pulse Rate 74 04/07/25 12:15 Respiratory Rate 16 04/07/25 12:15 Blood Pressure 136/84 04/07/25 12:15 Pulse Oximetry 98 04/07/25 12:15 Oxygen Delivery Room Air 04/07/25 09:50 MDM - Abdominal Pain MDM Narrative Medical decision making narrative: Patient presented to ED with lower abdominal/pelvic pain, history of hysterectomy 9 weeks ago. Severe episode of pain yesterday. Improved today. Does not currently want anything for pain. Vital signs are stable upon arrival. Cbc without leukocytosis or anemia. CMP is unremarkable. Lactic acid within normal range. UA with trace amount of RBC, no signs of infection. CT scan of abdomen/pelvis was obtained and showing small amount of likely physiologic free fluid in the pelvis, otherwise unremarkable. No abscess or other acute abnormalities. Discussed lab and imaging findings, overall reassuring workup with patient. She feels reassured by this. Updated Dr. Khan, on-call for Dr. Vazquez on case and reassuring w/u. Patient has a follow-up appointment with Dr. Vazquez on Thursday. Discussed continued pain control at home. Advised close follow-up. Given strict return precautions. Patient in agreement with plan. Discharged in stable condition. Medical Records Attestation: I reviewed the patient's medical records. Lab Data Attestation: I reviewed the patient's lab results. 04/07/25 10:05 04/07/25 10:05 Labs: Lab Results 04/07/25 Range/Units 10:05 WBC 4.8 (4.5-10.0) K/mm3 RBC 4.79 (4.2-5.4) M/mm3 Hgb 13.3 (12.0-15.0) g/dL Hct 42.1 (37.0-47.0) % MCV 87.9 (80-100) fl MCH 27.8 (26-34) pg MCHC 31.6 L (32-36) g/dl RDW 17.0 H (11.5-14.5) % Plt Count 198 (150-375) k/mm3 MPV 11.9 H (7.4-10.4) fl Immature Gran % (Auto) 0.2 (0-0.5) % Neut % (Auto) 65.7 (45.5-73.1) % Lymph % (Auto) 27.9 (18.3-44.2) % [place] % (Auto) 4.0 (2.6-8.5) % Eos % (Auto) 1.2 (0-4.4) % Baso % (Auto) 1.0 (0.2-1.2) % Lymph # (Auto) 1.34 (0.9-3.2) K/mm3 [place] # (Auto) 0.2 (0.1-0.6) K/mm3 Eos # (Auto) 0.1 (0-0.3) K/mm3 Baso # (Auto) 0.1 (0.0-0.1) K/mm3 Abs Immat Gran (auto) 0.01 (0.00-0.031) K/mm3 Absolute Neuts (auto) 3.2 (1.3-6.7) K/mm3 Absolute Nucleated RBC 0.000 (0.0-0.012) K/mm3 Nucleated RBC % 0.0 (0.0-0.2) % Sodium 139 (137-145) mmol/L Potassium 4.0 (3.4-5.0) mmol/L Chloride 104 (98-107) mmol/L Carbon Dioxide 27 (22-30) mmol/L Anion Gap 8 (4-12) mmol/L BUN 11 (7-17) mg/dL Creatinine 0.66 L (0.7-1.0) mg/dL Estim Creat Clear Calc 87 ml/min Estimated GFR > 60 (59 - ) Glucose 93 (65-110) mg/dL Lactic Acid 1.0 (0.7-2.0) mmol/L Calcium 8.9 (8.4-10.2) mg/dL Total Bilirubin 0.7 (0.2-1.3) mg/dL AST 24 (14-36) U/L ALT 14 (6-35) U/L Alkaline Phosphatase 49 (38-126) U/L Total Protein 7.6 (6.3-8.2) g/dL Albumin 4.6 (3.5-5.1) g/dL Lipase 161 (23-300) U/L Urine Color Yellow (Yellow) Urine Appearance Clear (Clear) Urine pH 6.5 (5.0-9.0) Ur Specific [place] 1.017 (1.001-1.035) Urine Protein Trace (Negative) mg/dL Urine Glucose (UA) Negative (Negative) mg/dL Urine Ketones Trace H (Negative) mg/dL Ur Blood (Man) Negative (Negative) Urine Nitrate Negative (Negative) Urine Bilirubin Negative (Negative) Urine Urobilinogen 0.2 (<2.0) mg/dL Leukocyte Esterase Rfl Negative (Negative) MARISSA/UL Urine RBC 3-5 H (0-2) /hpf Urine WBC 0-5 (0-3) /hpf Ur Squamous Epith Cells Occasional (Few) /hpf Urine Bacteria Rare /hpf Urine Casts 0-2 Imaging Data Attestation: I personally reviewed and interpreted this imaging study as follows: Radiologist's impression: ITS Impressions Abdomen/Pelvis CT 04/07/25 10:54 IMPRESSION: 1. Status post hysterectomy with small amount of likely physiologic free fluid in the pelvis. No abscess or other acute intra-abdominal/pelvic process. Discharge Plan Discharge Clinical Impression: Pelvic pain, History of hysterectomy Patient Disposition: Home Condition: Stable Instructions: Antibiotic Form, Pelvic Pain in Women (ED), Pelvic Pain (ED) Additional Instructions: Your workup here was reassuring. Continue to follow-up with Dr. Vazquez for further evaluation. Continue Tylenol/ibuprofen as needed for pain. Return for new or worsening concerns, severe pain, fevers, unable to keep down food or drink, or any other symptoms of concern. Patient Language: Malay Prescriptions: No Action estradiol [Minivelle] 0.05 mg/24 hr patch semiweekly 1 patch transdermal 2XW Rx Instructions: apply 1 patch for 3 days alternating with 1 patch for 4 days each week for 3 wks per 4-wk cycle levothyroxine 150 mcg tablet 150 mcg PO DAILY Qty: 90 3RF estradiol 0.01 % (0.1 mg/gram) cream 1 appful vaginal DAILY Qty: 42.5 2RF Rx Instructions: for 14 days Follow-up/Referrals: Luis Daniel Vazquez MD [Physician, INFORMATION LEAD] Referral Note: Francesca Kim PA-C [Primary Care Provider, [facility]] Time of Disposition: 12:06
[2025-04-07 12:15] VITALS: BP 136/84; PULSE 74; RESP 16; O2SAT 98
== END 2025-04-07 12:16 | disposition home or self-care (01) ==
PROVIDERS: Emergency Provider Physician Assistant; PCP Physician Assistant Medical
DX: R10.2 Pelvic and perineal pain (principal); E03.9 Hypothyroidism, unspecified; Z90.710 Acquired absence of both cervix and uterus
CPT/HCPCS: 36415; 74177; 80053; 81001; 83605; 83690; 85025; 99284; Q9967